=== PATIENT | male | born 1935 | race Caucasian/White ===

== ENCOUNTER → 2024-02-15 06:35 | Outpatient (REF) | payer MEDICARE, BC, SELFPAY ==
[2024-02-15 07:17] LABS: % Basophils 1.3 % (0-2); % Eosinophils 9.7 % (0-6); % Immature Granulocytes 0.3 % (0-0.5); % Lymphocytes 21.8 % (20.5-51.1); % Monocytes 14.1 % (1.7-9.3); % Neutrophils 52.8 % (42.2-75.2); Absolute Basophils 0.1 10^3/uL (0-0.2); Absolute Eosinophils 0.9 10^3/uL (0-0.7); Absolute Lymphocytes 2.1 10^3/uL (1.2-3.4); Absolute Monocytes 1.3 10^3/uL (0.1-0.6); Hematocrit 48.1 % (39.0-52.0); Hemoglobin 15.9 g/dL (13.0-18.0); Mean Corp Hgb Conc. 33.1 g/dL (33.0-37.0); Mean Corpuscular Hgb 31.4 pg (27.0-31.0); Mean Corpuscular Volume 94.9 fL (80.0-94.0); Mean Platelet Volume 10.7 fL (7.4-10.4); Nucleated Red Blood Cells % 0 % (-); Platelet Count 236 10^3/uL (130-400); Red Blood Cell Count 5.07 10^6/uL (4.70-6.10); Red Cell Dist. Width 14.2 % (11.5-14.5); White Blood Cell Count 9.4 10^3/uL (4.8-10.8)
[2024-02-15 07:46] LABS: Free T4 1.09 ng/dl (0.78-2.19)
[2024-02-15 07:48] LABS: ALT (SGPT) 26 U/L (0-50); AST (SGOT) 30 U/L (17-59); Albumin 4.2 g/dl (3.5-5.0); Alkaline Phosphatase 53 U/L (38-126); Blood Urea Nitrogen 39 mg/dl (9-20); Calcium 9.7 mg/dl (8.4-10.2); Carbon Dioxide 28 mmol/L (22-30); Chloride 106 mmol/L (98-107); Glucose 88 mg/dl (70-99); Iron 148 ug/dl (49-181); Potassium 4.7 mmol/L (3.5-5.1); Sodium 139 mmol/L (135-145); Total Bilirubin 0.7 mg/dl (0.2-1.3); Total Protein 7.2 g/dl (6.3-8.2); eGFR 38.53
[2024-02-15 07:58] LABS: Percent Saturation 56 % (20-50); Total Iron Binding Capacity 262 ug/dl (261-462)
[2024-02-15 08:03] LABS: Ferritin 93.3 ng/ml (17.9-464.0)
== END ==
LOC: REG 06:35
PROVIDERS: FAMILY PHYSICIAN Family Medicine
DX: L29.8 Other pruritus (principal); E03.9 Hypothyroidism, unspecified
CPT/HCPCS: 36415; 80053; 82728; 83540; 83550; 84439; 84443; 85025

== ENCOUNTER → 2024-03-11 10:47 | Outpatient (REF) | payer MEDICARE, BC, SELFPAY | LOC: RAD 10:47 | PROVIDERS: ATTENDING PHYSICIAN Podiatrist Primary Podiatric Medicine; FAMILY PHYSICIAN Family Medicine | DX: M79.672 Pain in left foot (principal); M25.572 Pain in left ankle and joints of left foot | CPT/HCPCS: 73610 ==

== ENCOUNTER 2024-03-24 16:34 | Inpatient (IN) | payer MEDICARE, BC, SELFPAY ==
[2024-03-24] VITALS (18 sets, daily range): BP systolic 91–146; BP diastolic 37–83; BMI 25.2
--- NOTE | 2024-03-24 13:35 | ED.GENMED ---
History of Present Illness
General
Chief Complaint: Heart Rate Problem
Source: patient, records and ambulance crew
Time Seen by Provider: 03/24/24 13:31
Travel History
Have you had any contact with someone who has COVID-19?: No
Do you have any symptoms of coronavirus? Fever > 100 degrees, chills, cough, shortness of breath, sore throat, loss of taste or smell, muscle aches, or headache?: No
History of Present Illness
History of Present Illness:
This patient is an 88-year-old male was brought to the emergency department by medics after they were called because patient was unresponsive. Upon medic arrival, patient was sitting in a chair unresponsive with a pulse of 20. External pacer pads
were applied, patient was paced and then given 1 mg of atropine. He has regained consciousness, heart rate is 40 and blood pressure is now measurable. Patient is now awake but somewhat confused which according to medics is baseline for him. He
denies chest pain, shortness of breath, abdominal pain, dizziness, or other complaints. His only memory of today is having a bowel movement and then waking up in this room.
Past History
Past History
ED Past Medical History: COPD, GERD, Seizures, Hypothyroidism and Other (Hypothyroidism, solitary kidney, lupus, rheumatoid arthritis, IBS)
ED Past Surgical History: Appendectomy
Social History
Tobacco: Former smoker
Alcohol: None
Drug: None
Personal:
Living: with family
Employment: Retired
Phy Exam
Physical Exam
Physical Exam:
GENERAL: Alert , in no apparent distress
EYE: pupils equal and reactive
NECK: Supple, no significant adenopathy.
ENT: o/p clr, mmm.
CARDIAC: Regular rate and rhythm .
LUNGS: Clear breath sounds bilaterally, no acute respiratory distress, no wheezes/rales/rhonchi
ABDOMEN: Soft, without focal tenderness, no r/g
NEUROLOGICAL: Alert and oriented to person and time but not place, no focal neuro deficits
SKIN: Warm and dry, skin intact.
MUSCULOSKELETAL: No edema, well perfused.
PSYCH: Normal and appropriate interaction.
Course
Orders/Labs/Results
Orders:
Orders
03/24/24 13:14
Electrocardiogram (*1) Urgent
Reason for Study: Bradycardia / Tachycardia
03/24/24 13:15
EKG- Treatment ONCE
03/24/24 13:19
Atropine Sulfate [Atropine 0.1 mg/ml Syringe] 1 mg .ROUTE .STK-MED ONE
03/24/24 13:35
CMP [Comprehensive Metabolic Panel] Urgent
Complete Blood Count/With Diff Urgent
Cortisol, Random Urgent
Comment: ADD-ON
Troponin I Urgent
03/24/24 13:38
Urinalysis Reflex To Culture Urgent
Date Specimen was Collected: 03/25/24
Time Specimen was Collected: 04:03
03/24/24 13:58
Lactic Acid Q4H
Comment: CANCEL 2nd LACTIC ACID IF 1st LACTIC ACID IS LESS THAN 2
TSH Stat
Blood Culture Q30M
JADIEL Source: Blood/Venous
Specimen Description:
Blood Culture Q30M
JADIEL Source: Blood/Venous
Specimen Description:
03/24/24 14:10
Atropine Sulfate [Atropine 0.1 mg/ml Syringe] 1 mg IV NOW STA
03/24/24 14:16
CT Head W/o Iv Contrast Urgent
Comment:
Reason For Exam: confusion
03/24/24 14:29
Atropine Sulfate [Atropine 0.1 mg/ml Syringe] 1 mg .ROUTE .STK-MED ONE
03/24/24 Dinner
Regular
At Your Request: Full Participation
Does patient need a safe tray?: No
03/24/24 15:08
Hydrocortisone Sod Succinate [Solu-Cortef] 100 mg IV NOW STA
Levothyroxine [Synthroid] 100 mcg PO NOW STA
03/24/24 15:43
Add On- LAB Routine
Tests Added?: cortisol
Admit/Transfer Patient As Directed
Co-Sign Provider:
Level of Care: Inpatient admission
Assign to:: IVU
Physician / Group: [facility]
Diagnosis: Symptomatic bradycardia, hypothermia
Reason for Hospitalization: Cardiology consult
Expected length of stay greater than two midnights?: Yes
ELOS- Estimated Length of Stay in days: 3
I certify the patient meets the requirements for IP care: Yes
03/24/24 15:46
Code Status As Directed
Resuscitation Status: Do not resuscitate
Reached after discussion with pt or family/Healthcare POA: Yes
DNR Bracelet Application ONCE
03/24/24 15:53
Sodium Zirconium Cyclosilicate [Lokelma] 10 gram PO NOW STA
03/24/24 17:23
0.45% Sodium Chloride 1000 ml [0.45%NaCl] 1,000 ml IV 65 mls/hr
Acetaminophen [Tylenol] 650 mg PO Q6HPRN PRN
Albuterol [ProAIR HFA INHALER] 2 puff INH R Q4HPRN PRN
03/24/24 17:23
CARDIOLOGY CONSULT Routine
Consulting Provider: Kings Gilbert
Was physician already notified: Yes
Activity As Directed
Activity Level: With Assistance
DX Deep Vein Thrombosis Video Routine
03/24/24 20:00
Fluticasone/Salmeterol 115/21 [Advair Hfa 115/21 Mcg Inhaler] 2 puff INH R BID
Heparin 5,000 units SC Q12
Levetiracetam [Keppra] 750 mg PO Q12
03/24/24 22:00
Artificial Tears (Pf) [Refresh Eye Drops (Pf)] 1 drops BOTH EYES TID
HydrOXYZINE [Atarax] 25 mg PO HS
03/25/24 02:24
Basic Metabolic Panel IN AM
03/25/24 06:00
Levothyroxine [Synthroid] 112 mcg PO DAILY @ 0600
03/25/24 08:00
Allopurinol [Zyloprim] 100 mg PO DAILY
Brimonidine Tartrate/Timolol [Combigan Eye Drops] 1 drop LEFT EYE DAILY
03/27/24 11:00
DC Protocol for Telemetry ONCE
Abnormal Lab Results
03/24/24 03/24/24
13:35 13:58
RBC 4.52 L 10^6/uL
(4.70-6.10)
MCV 96.2 H fL
(80.0-94.0)
MCHC 32.2 L g/dL
(33.0-37.0)
MPV 10.8 H fL
(7.4-10.4)
Abs Immat Gran (auto) 0.1 H 10^3/uL
(0-0.05)
Absolute Monos (auto) 1.0 H 10^3/uL
(0.1-0.6)
Monocytes % 9.7 H %
(1.7-9.3)
Potassium 5.3 H mmol/L
(3.5-5.1)
Chloride 111 H mmol/L
(98-107)
Carbon Dioxide 21 L mmol/L
(22-30)
BUN 45 H mg/dl
(9-20)
Creatinine 1.9 H mg/dL
(0.7-1.3)
Calcium 8.2 L mg/dl
(8.4-10.2)
Alkaline Phosphatase 23 L U/L
(38-126)
Total Protein 5.9 L g/dl
(6.3-8.2)
Albumin 3.3 L g/dl
(3.5-5.0)
TSH 12.20 H uIU/ml
(0.47-4.68)
03/24/24 13:35
03/24/24 13:35
Vital Signs
Initial and Last Documented VS:
Initial Vital Signs
Pulse Resp BP
41 18 124/67
03/24/24 13:15 03/24/24 13:15 03/24/24 13:15
Last Documented Vital Signs
Temp Pulse Resp BP Pulse Ox
97.8 F 72 16 155/91 96
03/26/24 07:52 03/26/24 08:34 03/26/24 08:34 03/26/24 07:54 03/26/24 08:34
*Critical Care Note
Total Time (30-74mins, 75-104mins- exclusive of procedures): 35
Update Note
Update Note:
Patient presents to the Emergency Department with ___unresponsiveness
Number and Complexity of Problems Addressed at the Encounter
� Chronic conditions affecting care:
� Acute Exacerbation and/or Progression of Chronic Illness:
� Differential Diagnosis includes: Vasovagal event, sick sinus syndrome, medication event, etc.
Amount and/or Complexity of Data to be Reviewed and Analyzed
� I performed an independent evaluation of and my interpretation is:
EKG: Junctional versus sinus bradycardia, narrow complex, right bundle branch block with left anterior fascicular block, no acute ischemia noted
CT:
Xrays:
Laboratory Studies: No hyponatremia noted, renal dysfunction baseline for patient, TSH markedly elevated at 12.2 in comparison to February 14 when it was 5.2
Other:
� Review of other/old records reveals: Discharge summary from February 2019 reviewed at that time patient had a hip fracture was also noted to have a first-degree heart block and was seen by cardiology, EF approximately 50% at that
time.
� Clinical information was obtained by an independent historian:
� Prescriptions/Medications Considered but not given:
� Further testing considered but not performed:
Risk of Complications and/or Morbidity or Mortality of Patient Management
� Social determinants of health affecting care:
� Discussion with other providers (PCP, Hospitalists, Consultants, etc):
� Escalation of care including admission/observation vs risk of discharge considered: 2:16 PM family now at bedside they describe patient complaining of dizziness, had a bowel movement, and then thereafter was calling out to
family. They found him unresponsive and called medics. They all had hamburgers yesterday and are not feeling well with GI symptoms. Patient recalls having a large bowel movement that 'came on fast'. Patient with recurrent bradycardia here
systolic blood pressure 99, 1 mg of atropine given. He is noted to be confused, which is not to the level of what would be typical for patient. Head CT ordered. Workup continues.
Of note, TSH elevated and patient is hypothermic and bradycardic. However, he does not have hyponatremia, hypoglycemia, hypotension, or lethargy that would suggest myxedema coma. Given synthroid and hydrocortisone here. Patient may need a pacer
as his bradycardia does not appear to be mediated by a vagal event alone. Head CT pending, [place] text to hospitalist for admission.
ED Attending Note
-
Portions of this chart may have been created with voice recognition software.� Occasional wrong word or��sound alike� substitutions may have occurred due to the inherent limitations of voice recognition software.
Discharge Plan
Departure
Patient Disposition: Admit
Date of Disposition: 03/24/24
Time of Disposition: 15:13
Admit to: ICU
Presentation/result/management discussed w/ accepting MD/DO: Hospitalist
Condition: Critical
Discharge Problem:
Bradycardia
Interventions
Interventions:
*Risk Screen - Suicide Last Done: 03/24/24 13:15
*General Assessment Last Done: 03/24/24 13:33
*Neglect/Abuse Screening Last Done: 03/24/24 13:33
ED- Fall Risk Assessment Last Done: 03/24/24 13:40
*ED COVID-19 Vaccine History Last Done: 03/24/24 13:33
*Nursing Disposition Last Done: 03/24/24 17:17
ED- Cardiac Assessment Last Done: 03/24/24 13:39
ED- Pulmonary Assessment Last Done: 03/24/24 13:39
Discharge Date and Time
Discharge Date/Time: 03/24/24 17:19
[2024-03-24 13:43] LABS: % Basophils 1.3 % (0-2); % Eosinophils 4.6 % (0-6); % Immature Granulocytes 0.5 % (0-0.5); % Lymphocytes 28.9 % (20.5-51.1); % Monocytes 9.7 % (1.7-9.3); Absolute Basophils 0.1 10^3/uL (0-0.2); Absolute Eosinophils 0.5 10^3/uL (0-0.7); Absolute Immature Granulocytes 0.1 10^3/uL (0-0.05); Absolute Neutrophils 5.7 10^3/uL (1.4-6.5); Hematocrit 43.5 % (39.0-52.0); Mean Corp Hgb Conc. 32.2 g/dL (33.0-37.0); Mean Corpuscular Volume 96.2 fL (80.0-94.0); Mean Platelet Volume 10.8 fL (7.4-10.4); Nucleated Red Blood Cells % 0 % (-); Platelet Count 183 10^3/uL (130-400); Red Blood Cell Count 4.52 10^6/uL (4.70-6.10); Red Cell Dist. Width 14.3 % (11.5-14.5); White Blood Cell Count 10.3 10^3/uL (4.8-10.8)
[2024-03-24 14:07] LABS: Troponin I 0.013 ng/ml
[2024-03-24 14:10] LABS: ALT (SGPT) 21 U/L (0-50); AST (SGOT) 30 U/L (17-59); Albumin 3.3 g/dl (3.5-5.0); Alkaline Phosphatase 23 U/L (38-126); Blood Urea Nitrogen 45 mg/dl (9-20); Calcium 8.2 mg/dl (8.4-10.2); Carbon Dioxide 21 mmol/L (22-30); Chloride 111 mmol/L (98-107); Estimated Creatinine Clearance 31 ml/min; Glucose 95 mg/dl (70-99); Potassium 5.3 mmol/L (3.5-5.1); Sodium 139 mmol/L (135-145); Total Bilirubin 0.6 mg/dl (0.2-1.3); Total Protein 5.9 g/dl (6.3-8.2); eGFR 33.72
[2024-03-24] MEDS: ATROPINE 0.1 MG/ML SYRINGE 1 MG IV (14:10)
[2024-03-24 14:21] LABS: Lactic Acid 1.7 mmol/L (0.7-2.0)
[2024-03-24] MEDS: SOLU-CORTEF 100 MG IV (15:17)
[2024-03-24] MEDS: SYNTHROID 100 MCG PO (15:17)
--- NOTE | 2024-03-24 15:51 | HPS.HSE ---
Family Physician
-
Family Physician: Zachary Stauffer
Chief Complaint
-
Unresponsive episode
History of Present Illness
88-year-old male found unresponsive in the chair by his family this morning. Paramedics arrived and noted heart rate of 20 and became arousable when they tried to inject him with atropine. Transcutaneous pacer applied and he was brought into the
emergency room. Noted to be hypothermic as well.
Patient and family deny history of bradycardia. Denies any medication changes. Denies any recent illnesses.
States he has been compliant with his daily Synthroid dose.
Medical History
Past Medical History
Past Medical History: Reports Other
Additional Past Medical History:
Hypothyroidism
Epilepsy
Solitary kidney -CKD 3B
Rheumatoid arthritis
SLE
IBS
COPD
Past Surgical History: Reports Appendectomy
Social History
Tobacco: Former Smoker
Alcohol: Daily
Drug: None
Personal:
Living: With Family
Family History
Family History: Not pertinent
Allergies / Home Medications
Allergies reflects when Allergies were last updated in [facility].
Home Medications with original date entered in [facility]
Allergy/Medication List:
Allergies
Allergy/AdvReac Type Severity Reaction Status Date / Time
No Known Allergies Allergy Verified 03/24/24 13:14
Home Medications
allopurinol 100 mg tablet 100 mg PO DAILY 30 days 03/11/19
cyanocobalamin (vitamin B-12) 1,000 mcg/mL injection solution 1,000 mcg IM MONTHLY 03/11/19
Serum Eye Drop 1 drp RIGHT EYE TID 03/24/24
Steroid Cream 1 applic topical BID 03/24/24
brimonidine 0.2 %-timolol 0.5 % eye drops (Combigan) 1 drp LEFT EYE DAILY 03/24/24
celecoxib 200 mg capsule 200 mg PO BID 03/24/24
fluticasone propionate 115 mcg-salmeterol 21 mcg/actuation HFA inhaler (Advair HFA) 2 puff inhalation R BID 03/24/24
hydroxyzine HCl 25 mg tablet 25 mg PO HS 03/24/24
levetiracetam 750 mg tablet 750 mg PO Q12 03/24/24
levothyroxine 100 mcg tablet 100 mcg PO DAILY 03/24/24
polyvinyl alcohol 1.4 % eye drops (Artificial Tears (polyvinyl alcohol)) 1 drp BOTH EYES TID 03/24/24
Review of Systems
-
History Source: Patient
A 12 point ROS was completed and negative except as noted: Yes
Physical Exam
Vital Signs
Vital Signs
Temp Pulse Resp BP Pulse Ox
96.8 F L 47 20 105/57 95
03/24/24 15:00 03/24/24 14:45 03/24/24 14:15 03/24/24 14:45 03/24/24 14:31
Physical Exam
General: Well Developed, Well Nourished, No Apparent Distress and Comfortable
HEENT: NormoCephalic and Anicteric; No Moist mucous membranes
Respiratory: Clear
Cardiac: S1/S2 and Regular Rhythm
GI: Soft, Non Tender and Non Distended
Genito-urinary: Deferred by me
Musculoskeletal: No Clubbing, No Cyanosis and No Edema
Skin: Warm and Dry
Neuro: AO x 3
Hematologic/Lymphatic: No Lymphadenopathy
Psych: Calm
Laboratory Results
-
03/24/24 13:35
03/24/24 13:35
Laboratory Results
Lactic Acid 1.7 mmol/L (0.7-2.0) 03/24/24 13:58
Total Bilirubin 0.6 mg/dl (0.2-1.3) 03/24/24 13:35
AST 30 U/L (17-59) 03/24/24 13:35
ALT 21 U/L (0-50) 03/24/24 13:35
Alkaline Phosphatase 23 U/L (38-126) L 03/24/24 13:35
Troponin I 0.013 ng/ml 03/24/24 13:35
Impression/Plan
-
Unresponsive episode -presumably due to severe bradycardia, hypotension. Component of volume depletion contributing given prerenal azotemia. Administer IV fluids, admit to telemetry. Bear hugger for hypothermia.
CT head pending.
Symptomatic bradycardia -suspect underlying conduction disease due to aging. Admit to telemetry. Cardiology consult. Consideration for pacemaker placement.
Hypothermia -doubt due to infection. Possibly due to hypothyroidism, rule out adrenal insufficiency. Consideration for hypothalamic failure due to aging.
DANIELLE on CKD 3B -due to volume depletion likely. IV fluids. Monitor urine output. He has a congenital solitary kidney. Stop NSAIDs.
Hyperkalemia -5.3. Give a dose of Lokelma. Etiology likely DANIELLE.
COPD without exacerbation -stable.
Hypothyroidism - TSH 12. Patient states he is compliant with levothyroxine at home. Will increase maintenance dose to 112 mcg daily, TSH in 4 weeks.
Epilepsy -history of partial seizures. Continue Keppra. Family states he has been seizure-free for quite some time now.
Rheumatoid arthritis
SLE
IBS
DNR -confirmed with patient and family.
[2024-03-24] MEDS: LOKELMA 10 GRAM PO (16:17)
[2024-03-24 16:55] LABS: Cortisol, Random 20.8 ug/dl
--- NOTE | 2024-03-24 17:55 | PTCARENOTE ---
received pt from ED. Pulled over from stretcher. pt is afib on the monitor, hr 36-45, vss. pt offers no complaints at this time. pt alert and oriented but can be forgetful at times per family. bed alarm in place. lungs clear and pulses palpable. pt
has small skin tear 3x2in on right forearm. pacer pads placed on pt. pt educated on plan of care for the evening and pt verbalized understanding. DNR bracelet placed. call hsu within reach.
[2024-03-24] MEDS: ADVAIR HFA 115/21 MCG INHALER 2 PUFF INH (19:47)
[2024-03-24] MEDS: 0.45%NACL 1000 IV (20:03)
[2024-03-24] MEDS: HEPARIN 5000 UNITS SC (20:06)
[2024-03-24] MEDS: KEPPRA 750 MG PO (20:07)
[2024-03-24] MEDS: ATARAX 25 MG PO (20:09)
[2024-03-25 02:39] VITALS: BP 157/83
[2024-03-25 03:00] LABS: Blood Urea Nitrogen 55 mg/dl (9-20); Calcium 9.2 mg/dl (8.4-10.2); Carbon Dioxide 21 mmol/L (22-30); Chloride 108 mmol/L (98-107); Estimated Creatinine Clearance 27 ml/min; Glucose 117 mg/dl (70-99); Potassium 5.1 mmol/L (3.5-5.1); Sodium 135 mmol/L (135-145); eGFR 28.28
[2024-03-25] MEDS: REFRESH EYE DROPS (PF) BOTH EYES ×2 (03:27→22:17)
[2024-03-25 05:37] LABS: Urine Albumin Trace (Neg - Trace); Urine Bilirubin Negative (Negative); Urine Character Clear (Clear); Urine Color Yellow; Urine Glucose Negative (Negative); Urine Ketone Negative (Negative); Urine Leukocyte Negative (Negative); Urine Nitrite Negative (Negative); Urine Occult Blood Negative (Negative); Urine Specific Gravity 1.015 (<1.030); Urine Urobilinogen Negative (Neg - 1+)
[2024-03-25] MEDS: SYNTHROID 112 MCG PO (05:40)
[2024-03-25] MEDS: 0.45%NACL 1000 IV (05:41)
--- NOTE | 2024-03-25 05:52 | PTCARENOTE ---
straight cath- 1100 output.
--- NOTE | 2024-03-25 05:53 | PTCARENOTE ---
Pt mildly forgetful overnight- AAOx2- not always to place- would reorient quickly but often though he was at home. x2 assist to the BSC shuffling unsteady gait
[2024-03-25 06:00] VITALS: BMI 24.3
[2024-03-25 07:19] VITALS: BP 145/73
[2024-03-25 07:22] VITALS: BP 145/73
--- NOTE | 2024-03-25 07:48 | CON.CAR ---
Addendum entered and electronically signed by Forest Farrell MD 03/25/24 09:12:
80-year-old man with syncope in his chair on March 24, 2024. Initial heart rate was 20 and improved with atropine. Also found to be hypothermic. He felt poorly before, with some diarrhea, thinks this is very different from his seizure disorder, is
very diligent at the gym, no longer drives, some cognitive impairment
Allergies: None
Outpatient medications: Allopurinol 100 mg a day, Combigan, celecoxib 200 mg twice daily, vitamin B12, Advair, hydroxyzine, levetiracetam 75 mg every 12 hours
Levothyroxine 100 mcg daily, artificial tears
PMH: Seizure disorder, hypothyroidism, CKD 3B with solitary kidney, rheumatoid arthritis, lupus, COPD, cognitive impairment
PSH: Appendectomy
SH: Ex-smoker, has alcohol daily, , does not drive, lives with family, retired
FH: Noncontributory
ROS: Negative except as above
145/73, pulse 65, resprate 18, sats 100%
Appears strong, pleasant, mildly forgetful, son and [id number] at bedside head neck exam unremarkable lungs are clear bradycardic rhythm without obvious murmurs abdomen benign extremities without clubbing cyanosis or edema, neuro nonfocal, has
changes of rheumatoid arthritis in hands
Hemoglobin 14, white count 10, potassium 5.1, had been 5.3 on admission, bicarb 21, BUN and creatinine 55 and 2.2, lactate 1.7, troponin 0.013, TSH 12.2, cortisol 20.8, anion gap 6
ECG junctional escape rhythm with occasional sinus rhythm, right bundle branch block, left anterior fascicular block
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
Impression:
Presented after unresponsive episode
Symptomatic bradycardia
Wenckebach
Hypothyroidism
h/o orthostatic hypotension
COPD
B12 Deficiency
Solitary kidney, CKD 3b
Epilepsy
SLE
IBS
h/o DVT 2005
Cognitive impairment
Echo 02/28/2019: EF 50%, MAC present, aortic valve sclerosis without stenosis
Plan:
He presents with evidence of advanced conduction disease, first-degree AV block, right bundle branch block, left anterior fascicular block with periods of second-degree AV block and also periods of bradycardia with junctional escape.
Complicating factors include history of a seizure disorder although current episode was not typical for him. He is also mildly hypothyroid, was hypothermic, is on a beta-blocking eyedrop, and he had abdominal distress prior to his event probably
implying high vagal tone at the time of his loss of consciousness.
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
Explained at length to patient and family.
Await echocardiogram, will check free T3 and free free T4.
Will plan on proceeding with pacemaker implantation in a.m. absent discovery of ongoing infection, etc.
Original Note:
Consultation
Consultation Request
Date/Time Consultation Requested: 03/24/2024
Date/Time Consultation Performed: 03/24/2024
Requesting Provider: Dr. Gregory
Performing Provider: Dr. PAULINE Farrell
Reason for Consultation: Symptomatic Bradycardia
Medical History
-
History of Present Illness:
HPI: Manohar is an 88 year old male with PMH of hypothyroidism, COPD, B12 deficiency, CKD, epilepsy, SLE, IBS, and prior DVT. He presented to [facility] for evaluation after unresponsive episode at home. He reports he has baseline unsteadiness related to
his B12 deficiency and ambulates with a cane, however over the past few days has felt more unsteady on his feet and has had lower energy. Yesterday he then had reported episode of unresponsiveness where he was found by his son, who he lives with, on
his chair and was unarousable. EMS was called and patient was noted to have a heart rate of 20. He was given atropine and woke back up. He then was brought to the ER where he was found to be hypothermic with temperature of 93.9F. Labwork revealed
TSH of 12.2, despite reported compliance with his OP levothyroxine. Initial EKG shows what appears to be junctional bradycardia. On review of telemetry, he appears to have intermittent Wenckebach. HRs improving this AM as his temperature has
returned to normal. He reports he is overall asymptomatic this AM.
PMH:
Hypothyroidism
h/o orthostatic hypotension
COPD
B12 Deficiency
Solitary kidney, CKD 3b
Epilepsy
SLE
IBS
h/o DVT 2005
Past Medical History
Past Medical History: Other (In HPI)
Past Surgical History: Appendectomy and Other (Inguinal hernia repair, L BOOKER 2019)
Social History
Tobacco: Former Smoker
Alcohol: Occasional
Drug: None
Personal:
Living: With Family
Employment: Retired
Family History
Family History: Reviewed & Not Pertinent
Allergies / Home Medications
Allergy/AdvReac Type Severity Reaction Status Date / Time
No Known Allergies Allergy Verified 03/24/24 13:14
�Medication �Instructions �Recorded �Confirmed �Type
allopurinol 100 mg tablet 100 mg PO DAILY 30 days 03/11/19 03/24/24 Rx
cyanocobalamin (vitamin B-12) 1,000 mcg IM MONTHLY 03/11/19 03/24/24 Rx
1,000 mcg/mL injection solution
Serum Eye Drop 1 drp RIGHT EYE TID Eye Condition 03/24/24 03/24/24 History
Steroid Cream 1 applic topical BID Skin Issues 03/24/24 03/24/24 History
brimonidine 0.2 %-timolol 0.5 % 1 drp LEFT EYE DAILY Eye Condition 03/24/24 03/24/24 History
eye drops (Combigan)
celecoxib 200 mg capsule 200 mg PO BID Pain 03/24/24 03/24/24 History
fluticasone propionate 115 2 puff inhalation R BID 03/24/24 03/24/24 History
mcg-salmeterol 21 mcg/actuation Lung/Breathing Issues
HFA inhaler (Advair HFA)
hydroxyzine HCl 25 mg tablet 25 mg PO HS Sleep 03/24/24 03/24/24 History
levetiracetam 750 mg tablet 750 mg PO Q12 Seizures 03/24/24 03/24/24 History
levothyroxine 100 mcg tablet 100 mcg PO DAILY Thyroid 03/24/24 03/24/24 History
polyvinyl alcohol 1.4 % eye drops 1 drp BOTH EYES TID Eye Condition 03/24/24 03/24/24 History
(Artificial Tears (polyvinyl
alcohol))
Review of Systems
-
History Source: Patient
All other systems: Negative unless noted
Physical Exam
Vital Signs
Temp Pulse Resp BP Pulse Ox
97.3 F 65 18 145/73 100
03/25/24 07:19 03/25/24 07:19 03/25/24 07:19 03/25/24 07:19 03/25/24 07:19
Lab Results
03/24/24 13:35
03/25/24 02:24
Troponin I 0.013 ng/ml 03/24/24 13:35
Physical Exam
General: Well Developed, Well Nourished and No Apparent Distress
HEENT: Normocephalic, Anicteric and Moist Mucous Membranes
Respiratory: Clear and Non Labored Respirations
Cardiac: S1/S2 and Regular Rhythm
Musculoskeletal: No Clubbing, No Cyanosis and No Edema
Skin: Warm and Dry
Neuro: AO x 3 and Nonfocal/Grossly Intact
Psych: Calm
Impression / Plan
-
PCP: Dr. Stauffer
Sports Trainer: Previously seen by Dr. Farrell in 2019
Impression:
Presented after unresponsive episode
Symptomatic bradycardia
Wenckebach
Hypothyroidism
h/o orthostatic hypotension
COPD
B12 Deficiency
Solitary kidney, CKD 3b
Epilepsy
SLE
IBS
h/o DVT 2005
Echo 02/28/2019: EF 50%, MAC present, aortic valve sclerosis without stenosis
Plan:
-Presented after unresponsive episode at home. Found w/ HR in 20s, given atropine and improved.
-Initial EKG what appears to be junctional bradycardia.
-Hypothermic on arrival to ER with temp 93.9F, temp improved overnight w/ bear hugger.
-TSH 12.2, continue levothyroxine. Dose increased this admission.
-HR improved on review of telemetry overnight, however still appears to have intermittent Wenckebach.
-Not on any AV ramiro blockers. Continue to avoid.
-Discussed PPM with patient. Will continue to follow for now, however given episode of symptomatic bradycardia, likely will need PPM this admission.
-Check echo. Last echo in 2018 with EF 50% and no significant valvular disease.
-K and mag stable.
-Head CT without evidence of acute stroke.
HPI: Manohar is an 88 year old male with PMH of hypothyroidism, COPD, B12 deficiency, CKD, epilepsy, SLE, IBS, and prior DVT. He presented to [facility] for evaluation after unresponsive episode at home. He reports he has baseline unsteadiness related to
his B12 deficiency and ambulates with a cane, however over the past few days has felt more unsteady on his feet and has had lower energy. Yesterday he then had reported episode of unresponsiveness where he was found by his son, who he lives with, on
his chair and was unarousable. EMS was called and patient was noted to have a heart rate of 20. He was given atropine and woke back up. He then was brought to the ER where he was found to be hypothermic with temperature of 93.9F. Labwork revealed
TSH of 12.2, despite reported compliance with his OP levothyroxine. Initial EKG shows what appears to be junctional bradycardia. On review of telemetry, he appears to have intermittent Wenckebach. HRs improving this AM as his temperature has
returned to normal. He reports he is overall asymptomatic this AM.
Data Reviewed
-
EKG: Tracing Personally Visualized and interpreted
CT Scan: Report Reviewed by me
Labs: Labs Reviewed by me
Old Records: Reviewed
[2024-03-25] MEDS: ADVAIR HFA 115/21 MCG INHALER 2 PUFF INH ×2 (08:29→19:39)
[2024-03-25] MEDS: KEPPRA 750 MG PO ×2 (08:29→19:43)
[2024-03-25] MEDS: COMBIGAN EYE DROPS 1 DROP LEFT EYE (08:31)
[2024-03-25] MEDS: HEPARIN 5000 UNITS SC ×2 (08:32→19:44)
[2024-03-25] MEDS: REFRESH EYE DROPS (PF) 1 DROPS BOTH EYES ×2 (08:35→19:43)
--- NOTE | 2024-03-25 08:47 | PTCARENOTE ---
Dr Farrell to see patient for cardiology. Pt is being kept NPO for now to see if he will need a pacer. Holding allopurinol until verified with hospitalist due to elevated creat.
[2024-03-25 10:24] LABS: Free T3 2.78 pg/ml (2.77-5.27); Free T4 1.13 ng/dl (0.78-2.19)
--- NOTE | 2024-03-25 10:47 | PTCARENOTE ---
Discussed 0530 am urinary retention with Dr White, Dr White states to place urinary catheter due to retention and renal failure. He states to place it now.
--- NOTE | 2024-03-25 11:30 | W.PN.HOSP.TC ---
Today's Communication/Plan
-
Cardiac monitoring.
For PPM on 03/26.
Continue Levothyroid.
IV fluids.
Rivera catheter secondary to acute retention.
Assessment / Plan
Assessment / Plan
Impression:
Presentation with unresponsiveness episode.
Symptomatic bradycardia/bifascicular block
Acute urine retention.
Acute kidney injury.
Hypothermia on admission
Conditions prior to admission:
Hypothyroidism on replacement
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
History of orthostatic hypotension
Epilepsy
SLE
IBS.
History of DVT in 2005 currently not on anticoagulation
Cognitive impairment.
Plan:
Presentation after episode of unresponsiveness
Found to be bradycardic with heart rate of 20 and administered atropine in the field.
Initial EKG consistent with junctional bradycardia.
Volume status hypovolemic upon presentation.
TSH 12.2, although on levothyroxine daily with normal T3-T4.
Normal cortisol level.
CT scan of the head with no acute abnormalities
Heart rate remains stable with no recurrent bradycardia. Had not required temporary pacemaker so far
Echocardiogram 02/28/2019 with preserved biventricular function.
Plan is for echocardiogram.
Pacemaker placement tentatively on 03/26. Follow electrolytes
Acute kidney injury.
Volume status hypovolemic with elevated BUN.
Also with component of retention. Bladder scan 1100 mL requiring straight cath.
Will place Rivera catheter.
Follow renal function.
Continue IV fluids at the lower rate over the next 24 hours.
Hyperkalemia potassium 5.3 improved status post single dose of Lokelma.
Hypothermia on admission.
Does not appear to be toxic
No clinical concern for sepsis
Hypothyroidism on replacement, although with elevated TSH and normal free T4 and T3.
Normal cortisol level.
COPD.
Respiratory status stable with no evidence of exacerbation
Rheumatoid arthritis
SLE.
IBS.
CODE STATUS DNR.
Anticipated Discharge: > 48 hours
Subjective/Interval History
-
Date of Service: March 25, 2024
Objective Data
-
Labs:
Laboratory Results
03/25/24
02:24
Sodium 135
Potassium 5.1
Chloride 108 H
Carbon Dioxide 21 L
BUN 55 H
Creatinine 2.2 H
Glucose 117 H
Calcium 9.2
Vital Signs:
Vital Signs
Temp Pulse Resp BP Pulse Ox
97.3 F 63 16 145/73 98
03/25/24 07:19 03/25/24 08:33 03/25/24 08:33 03/25/24 07:19 03/25/24 08:33
I&O
03/24/24 03/25/24 03/26/24
06:59 06:59 06:59
Output Total 1200 / 1200
Balance -1200 / -1200
Physical Exam
-
General: Well Developed and No Apparent Distress
HEENT: Normocephalic, Atraumatic and Moist Mucous Membranes
Respiratory: Clear to Auscultation
Cardiac: Regular Rhythm and S1/S2; Negative Murmur, Rub or Gallop
GI: Soft, Nontender, Nondistended and Normal Bowel Sounds; Negative Organomegaly
Rectal: Deferred by Provider
Musculoskeletal: No Clubbing, No Cyanosis and No Edema
Skin: Negative Rash
Neuro: Nonfocal/Grossly Intact
[2024-03-25 11:40] VITALS: BP 117/65
--- NOTE | 2024-03-25 11:40 | PTCARENOTE ---
pt having heart rate down to 40's with stable bp. [place] text sent to NIRAV Cruz:
can you order an ekg for Mr jose in [id number], he is having heart blocks and it is difficult to see rhythm on monitor, heart rate down to 40's now but bp great.
Will obtain ekg
--- NOTE | 2024-03-25 12:12 | PTCARENOTE ---
EKG shown to NIRAV Cruz, pt will get ppm tomorrow.
--- NOTE | 2024-03-25 12:12 | CM ---
Chart reviewed. Patient is independent of ADLS, lives with his son in a 2 S[address], ambulates with a SPC and rolling walker, 0 TRINID[place]. Patient appears unsteady on his feet. PT/OT evaluation requested. Patient is waiting for PPM. CM to follow
[2024-03-25] MEDS: NON-FORMULARY ITEM 1 DROP RIGHT EYE (18:20)
[2024-03-25 19:01] VITALS: BP 113/66
[2024-03-25 22:21] VITALS: BP 139/79
[2024-03-25] MEDS: NON-FORMULARY ITEM RIGHT EYE (22:22)
[2024-03-25] MEDS: ATARAX 25 MG PO (22:22)
[2024-03-26] VITALS (16 sets, daily range): BP systolic 96–190; BP diastolic 64–108; BMI 23.7
--- NOTE | 2024-03-26 03:00 | PTCARENOTE ---
Patient setting bed alarm off, attempting to get OOB. Patient stating 'I'm in the kids bedroom, I want to get in my bedroom'. Patient had another episode of confusion and states 'I'm looking for my class ring, its over there on the counter'.This RN
put lights on, and no ring in site. This RN redirected patient to place and situation. Patient having ? episodes of hallucinations. Patient became agitated w/ nursing staff. Attempted reality orientation. Bed alarm remains active. Call hsu in
reach. Reminded patient to remain NPO for procedure today. Tele monitor shows thania w/ 1st AV block, BBBC, and occasionally junctional. HR in the 40-50's at rest.
[2024-03-26 04:56] LABS: Blood Urea Nitrogen 46 mg/dl (9-20); Calcium 9.2 mg/dl (8.4-10.2); Carbon Dioxide 22 mmol/L (22-30); Chloride 110 mmol/L (98-107); Estimated Creatinine Clearance 37 ml/min; Glucose 84 mg/dl (70-99); Potassium 4.6 mmol/L (3.5-5.1); Sodium 141 mmol/L (135-145); eGFR 41.44
[2024-03-26] MEDS: SYNTHROID 112 MCG PO (05:25)
[2024-03-26] MEDS: ADVAIR HFA 115/21 MCG INHALER 2 PUFF INH ×2 (08:29→21:01)
--- NOTE | 2024-03-26 08:36 | PTCARENOTE ---
Assumed care of pt from prev nsg shift. Pt AAOX1, oriented to self only. Pt confused to time & place. Pt appears to be hallucinating & seeing his & other family members. Pt confused to place telling this RN he's 'camping right now'. Pt
is aware he is having a PPM placed today. Pt w/no cp or SOB. VS stable w/HR currently in the 60's. BP elevated at 155/91. Pt's rythm per telemetry monitoring alternates between SB, SR, & junctional. Pt w/call hsu within reach & bed alarm in place.
Pt does require frequent reorientation & reminders to stay in bed. Plan of care ongoing.
[2024-03-26] MEDS: REFRESH EYE DROPS (PF) 1 DROPS BOTH EYES ×2 (09:22→18:20)
[2024-03-26] MEDS: KEPPRA 750 MG PO ×2 (09:23→20:00)
[2024-03-26] MEDS: HEPARIN 5000 UNITS SC (09:23)
[2024-03-26] MEDS: COMBIGAN EYE DROPS 1 DROP LEFT EYE (09:26)
--- NOTE | 2024-03-26 10:53 | CM ---
Chart reviewed. Patient is independent of ADLS, lives with his son in a 2 S[address], 0 TRIN[place], ambulates with a SPC. PT/OT evaluation ordered. Plan is for the patient to return home with VN vs SNF. CM to follow
[2024-03-26] MEDS: NON-FORMULARY ITEM RIGHT EYE ×2 (12:15→22:24)
--- NOTE | 2024-03-26 12:17 | W.PN.UPDATE ---
Update Note
Progress Note Update
Met with patient and son at the bedside and discussed options for pacemaker placement. Discussed left-sided implant with activity restrictions including 1 of thousand risk of and a 1% risk of pneumothorax tamponade infection or bleeding. The
patient and son agree and I took time to answer all questions. Will proceed to pacemaker placement later today.
--- NOTE | 2024-03-26 13:42 | W.PN.HOSP.TC ---
Today's Communication/Plan
-
For pacemaker placement
Continue.
Consider to initiate Flomax.
Physical therapy assessment after pacemaker placement.
Assessment / Plan
Assessment / Plan
Impression:
Presentation with unresponsiveness episode.
Symptomatic bradycardia/bifascicular block
Acute urine retention.
Acute kidney injury.
Hypothermia on admission
Conditions prior to admission:
Hypothyroidism on replacement
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
History of orthostatic hypotension
Epilepsy
SLE
IBS.
History of DVT in 2005 currently not on anticoagulation
Cognitive impairment.
Plan:
Presentation after episode of unresponsiveness
Found to be bradycardic with heart rate of 20 and administered atropine in the field.
Initial EKG consistent with junctional bradycardia.
Volume status hypovolemic upon presentation.
TSH 12.2, although on levothyroxine daily with normal T3-T4.
Normal cortisol level.
CT scan of the head with no acute abnormalities
Heart rate remains stable with no recurrent bradycardia. Had not required temporary pacemaker so far
Echocardiogram 02/28/2019 with preserved biventricular function.
Plan is for echocardiogram.
Pacemaker placement tentatively on 03/26. Follow electrolytes
Acute kidney injury.
Volume status hypovolemic with elevated BUN.
Also with component of retention. Bladder scan 1100 mL requiring straight cath.
Will place Rivera catheter.
Follow renal function.
Continue IV fluids at the lower rate over the next 24 hours.
Hyperkalemia potassium 5.3 improved status post single dose of Lokelma.
Hypothermia on admission.
Does not appear to be toxic
No clinical concern for sepsis
Hypothyroidism on replacement, although with elevated TSH and normal free T4 and T3.
Normal cortisol level.
COPD.
Respiratory status stable with no evidence of exacerbation
Rheumatoid arthritis
SLE.
IBS.
CODE STATUS DNR.
Anticipated Discharge: 24 - 48 hours
Subjective/Interval History
-
Date of Service: March 26, 2024
Objective Data
-
Labs:
Laboratory Results
03/26/24
04:08
Sodium 141
Potassium 4.6
Chloride 110 H
Carbon Dioxide 22
BUN 46 H
Creatinine 1.6 H
Glucose 84
Calcium 9.2
Vital Signs:
Vital Signs
Temp Pulse Resp BP Pulse Ox
97.8 F 77 20 141/88 96
03/26/24 11:11 03/26/24 12:00 03/26/24 11:11 03/26/24 11:52 03/26/24 11:11
I&O
03/25/24 03/26/24 03/27/24
06:59 06:59 06:59
Intake Total 680 / 680
Output Total 1200 / 1200 3480 / 3480 1025 / 1025
Balance -1200 / -1200 -2800 / -2800 -1025 / -1025
Physical Exam
-
General: Well Developed and No Apparent Distress
HEENT: Normocephalic, Atraumatic and Moist Mucous Membranes
Respiratory: Clear to Auscultation
Cardiac: Regular Rhythm and S1/S2; Negative Murmur, Rub or Gallop
GI: Soft, Nontender, Nondistended and Normal Bowel Sounds; Negative Organomegaly
Rectal: Deferred by Provider
Musculoskeletal: No Clubbing, No Cyanosis and No Edema
Skin: Negative Rash
Neuro: Nonfocal/Grossly Intact
--- NOTE | 2024-03-26 14:50 | ITS.CL.PACE ---
[facility] - Pacemaker Implant
Pacemaker Implant
Procedure Report:
Date of Procedure: March 26, 2024
Patient : [id number]
Procedure: Pacemaker Implantation.
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
Implants:
Pulse Generator: Medtronic; Model# W1 DR 01; SN: [id number]
RA Lead: Medtronic; Model# 4574; SN: [id number]
RV Lead: Medtronic; Model# 4074; SN: [id number]
Technique: A time out was performed. The procedure site was identified. The patient was anesthetized by the anesthesia service. Preoperative sedation was administered. The patient was prepped and draped in the usual fashion. Local anesthetic was
applied to the left prepectoral subcutaneous tissue. A 3 inch incision was made 2.5 inches below the left clavicle. A subcutaneous pocket was created with blunt and sharp dissection and hemostasis controlled with Bovie cautery. The left axillary
vein was accessed within the pocket without difficulty. Hemostasis was excellent. The leads were introduced with 7 Fr hemostatic peel away introducer sheaths. The ventricular lead was placed at the right ventricular apex. Multiple shaped stylette's
were required as positioning was somewhat difficult. The atrial lead was placed
in the right atrial appendage. 10 volt pacing did not capture the diaphragm. The leads were secured to the pectoralis muscle and fascia. The leads were appropriately attached to the device. The pocket was irrigated with antibiotic solution. The
device and leads were placed in the pocket. The incision was closed in three layers with absorbable suture. The estimated blood loss was minimal. There were no complications.
Lead Analysis:
RA lead: P: 2.4 mV; Threshold: 0.5 V @ 0.5 ms; Impedance: 931 ohms.
RV lead: R: 13 mV; Threshold: 0.75 V @ 0.5 ms; Impedance: 1216 ohms.
Final Programming: AAIR�DDDR 60-130 beats a minute
Conclusion: Uncomplicated Medtronic pacemaker implant.
Recommendation: Routine post pacemaker care.
--- NOTE | 2024-03-26 15:10 | PTCARENOTE ---
Rec'd pt back from EP lab AAOx1, pt continues to be confused to time& place. Needs freq reorientation. Pt w/LUE immobilizer in place w/aquacell dressing C/D/I. Pt w/no c/o pain at this time. EKG completed. VS stable w/HR in the 60's now & pt is AV
paced on telemetry monitoring. Family at bedside. Medsitter in place for closer monitoring of pt. Plan of care ongoing.
[2024-03-26] MEDS: NON-FORMULARY ITEM 1 DROP RIGHT EYE (18:20)
[2024-03-26] MEDS: ANCEF 5 IV (20:01)
[2024-03-26] MEDS: FLOMAX 0.400000000000000022 MG PO (22:24)
[2024-03-26] MEDS: REFRESH EYE DROPS (PF) BOTH EYES (22:24)
[2024-03-26] MEDS: ATARAX 25 MG PO (22:24)
[2024-03-27] VITALS (13 sets, daily range): BP systolic 97–154; BP diastolic 62–116; PULSE 75; O2SAT 96
[2024-03-27 03:57] LABS: Hematocrit 44.7 % (39.0-52.0); Mean Corp Hgb Conc. 33.6 g/dL (33.0-37.0); Mean Corpuscular Hgb 31.1 pg (27.0-31.0); Mean Corpuscular Volume 92.7 fL (80.0-94.0); Mean Platelet Volume 10.7 fL (7.4-10.4); Platelet Count 174 10^3/uL (130-400); Red Blood Cell Count 4.82 10^6/uL (4.70-6.10); Red Cell Dist. Width 13.8 % (11.5-14.5); White Blood Cell Count 9.8 10^3/uL (4.8-10.8)
[2024-03-27 04:14] LABS: Blood Urea Nitrogen 37 mg/dl (9-20); Calcium 9.3 mg/dl (8.4-10.2); Carbon Dioxide 22 mmol/L (22-30); Chloride 108 mmol/L (98-107); Estimated Creatinine Clearance 42 ml/min; Glucose 86 mg/dl (70-99); Magnesium 1.9 mg/dl (1.6-2.3); Potassium 4.5 mmol/L (3.5-5.1); Sodium 139 mmol/L (135-145); eGFR 48.65
[2024-03-27] MEDS: SYNTHROID 112 MCG PO (05:24)
[2024-03-27] MEDS: ANCEF 5 IV (05:24)
--- NOTE | 2024-03-27 05:55 | PTCARENOTE ---
Left anterior chest dressing remains intact w/ left arm in immobilizer. Pt AAOx1-2, and confused at times. Patient having ? hallucinations, and this RN provided reality orientation. Med sitter remains, and bed alarm active. Rivera draining jad
color urine. Patient currently laying in bed.
--- NOTE | 2024-03-27 08:00 | PTCARENOTE ---
Assumed care of pt from prev nsg shift. Pt AAOx1-2, pt is confused to place & at times to time. Reorients easily, but requires frequent reorientation. Pt /w L chest wall PPM site w/aquacell dressing C/D/I, w/no signs or symptoms of bleeding or
hematoma. Pt's VS stable w/HR in 70's-80's & BP stable at 110/81 this AM. Pt does make frequent attempts to get OOB without assistance. Medsitter remains in place for pt safety. Plan of care ongoing.
[2024-03-27] MEDS: ADVAIR HFA 115/21 MCG INHALER 2 PUFF INH ×2 (08:23→20:41)
--- NOTE | 2024-03-27 08:50 | W.PN.CARDCBS ---
Today's Communication / Plan
-
No objection to discharge from a cardiovascular perspective status post pacemaker
Outpatient wound check in 7 to 10 days
Impression / Plan
-
PCP: Dr. Stauffer
Access Analyst: Previously seen by Dr. Farrell in 2019
Impression:
Presented after unresponsive episode
Symptomatic bradycardia
Wenckebach
Hypothyroidism
h/o orthostatic hypotension
COPD
B12 Deficiency
Solitary kidney, CKD 3b
Epilepsy
SLE
IBS
h/o DVT 2005
Echo 02/28/2019: EF 50%, MAC present, aortic valve sclerosis without stenosis
Plan:
-Presented after unresponsive episode at home. Found w/ HR in 20s, given atropine and improved.
-Initial EKG what appears to be junctional bradycardia.
-Hypothermic on arrival to ER with temp 93.9F, temp improved overnight w/ bear hugger.
-TSH 12.2, continue levothyroxine. Dose increased this admission.
-Status post pacemaker with appropriate lead positions and chest x-ray in the right atrium and right ventricle and ECG this morning demonstrating appropriate atrial sensing and ventricular sensing and pacing.
-Stable from discharge from my standpoint from a cardiovascular perspective and he can follow-up for wound check in our office in 7 to 10 days and continue outpatient follow-up with our service.
HPI: Manohar is an 88 year old male with PMH of hypothyroidism, COPD, B12 deficiency, CKD, epilepsy, SLE, IBS, and prior DVT. He presented to [facility] for evaluation after unresponsive episode at home. He reports he has baseline unsteadiness related to
his B12 deficiency and ambulates with a cane, however over the past few days has felt more unsteady on his feet and has had lower energy. Yesterday he then had reported episode of unresponsiveness where he was found by his son, who he lives with, on
his chair and was unarousable. EMS was called and patient was noted to have a heart rate of 20. He was given atropine and woke back up. He then was brought to the ER where he was found to be hypothermic with temperature of 93.9F. Labwork revealed
TSH of 12.2, despite reported compliance with his OP levothyroxine. Initial EKG shows what appears to be junctional bradycardia. On review of telemetry, he appears to have intermittent Wenckebach. HRs improving this AM as his temperature has
returned to normal. He reports he is overall asymptomatic this AM.
Progress Note - Access Analyst
Subjective
Date of Service: March 27, 2024
Total Time Spent with Patient (in minutes): Status post pacemaker and feels well
Objective
Labs:
03/27/24 03:28
03/27/24 03:28
Labs
Hgb 15.0 g/dL (13.0-18.0) 03/27/24 03:28
Hct 44.7 % (39.0-52.0) 03/27/24 03:28
Plt Count 174 10^3/uL (130-400) 03/27/24 03:28
Sodium 139 mmol/L (135-145) 03/27/24 03:28
Potassium 4.5 mmol/L (3.5-5.1) 03/27/24 03:28
BUN 37 mg/dl (9-20) H 03/27/24 03:28
Creatinine 1.4 mg/dL (0.7-1.3) H 03/27/24 03:28
Glucose 86 mg/dl (70-99) 03/27/24 03:28
Troponins
03/24/24
13:35
Troponin I 0.013
Vital Signs and I&O:
Vital Signs
Temp Pulse Resp BP Pulse Ox
98.1 F 71 16 110/81 99
03/27/24 07:03 03/27/24 08:26 03/27/24 08:26 03/27/24 07:08 03/27/24 08:26
Vital Signs
Temp Pulse Resp BP Pulse Ox
98.1 F 71 16 110/81 99
03/27/24 07:03 03/27/24 08:26 03/27/24 08:26 03/27/24 07:08 03/27/24 08:26
Intake & Output
03/25/24 03/26/24 03/27/24 03/28/24
06:59 06:59 06:59 06:59
Intake Total 680 / 680 740 / 740
Output Total 1200 / 1200 3480 / 3480 2325 / 2325
Balance -1200 / -1200 -2800 / -2800 -1585 / -1585
Physical Exam
Physical Exam
HEENT normocephalic atraumatic
JVP 6
Left deltopectoral groove site clean dry and intact
No hematoma
Chest x-ray inspected without pneumothorax and leads in the right atrium and the tip of the right ventricle
Appropriate atrial sensing and ventricular pacing on telemetry
Alert and orient x 3
Nonfocal neurologically
No extreme edema
--- NOTE | 2024-03-27 09:16 | PN.CDI ---
Addendum entered and electronically signed by Victor Manuel White MD 04/01/24 16:14:
Unable to comment.
Original Note:
CDI
- -
CDI:
Physician Documentation Request
Admit Date: 03/24/24 16:34
Dear Doctor Cindy,
Please review the following and provide your response in the progress notes.
Clinical Indicators:
Pt admitted with syncope/symptomatic bradycardia
03/24 CT head: 'The findings are consistent with a chronic neurodegenerative disease (possibly Alzheimer's dementia)....Moderate white matter leukoaraiosis in the frontal and parietal lobes.'
03/25 per PN history of 'Cognitive impairment'
03/26 Nurses notes: 'attempting to get OOB. Patient stating 'I'm in the kids bedroom, I want to get in my bedroom'....Patient having ? episodes of hallucinations. Patient became agitated w/ nursing staff....'
Based on the above, could you please clarify in the Progress Notes and Discharge Summary which, if any of the following, is the most likely etiology of the confusion/altered mental status.
Encephalopathy - indicate type, such as metabolic, toxic, septic, alcoholic, anoxic, hypertensive etc. due to a specific condition such as UTI, CVA, hyponatremia etc.
Dementia with acute delirium - indicate type fo dementia, such as Alzheimer's, senile, vascular, Lewy body etc.
Acute Delirium - indicate known or suspected etiology such as postoperative, due to opioids or other drugs etc. Can also indicate unknown or mixed etiologies.
Baseline Dementia - indicate type, such as Alzheimer's, senile, vascular, Lewy body etc., and any associated behavioral disturbances (aggressive, combative or violent behavior) if present
Acute or subacute confusional state due to hospitalization.
Hallucinations
Other
Use of terms such as suspected, likely, concern for, or probable (associated with a specific diagnosis that is being evaluated, monitored, or treated as if it exists) are acceptable and can be coded in the inpatient setting, when documented at the
time of discharge.
Thank you,
Bertha Shen RN, BSN
CDI Specialist
Available via [place] [employer]
Please use your independent medical judgment in providing your response.
[2024-03-27] MEDS: KEPPRA 750 MG PO ×2 (09:52→20:26)
[2024-03-27] MEDS: NON-FORMULARY ITEM 1 DROP RIGHT EYE ×3 (09:53→22:07)
[2024-03-27] MEDS: REFRESH EYE DROPS (PF) 1 DROPS BOTH EYES ×3 (09:55→20:26)
[2024-03-27] MEDS: COMBIGAN EYE DROPS 1 DROP LEFT EYE (09:56)
--- NOTE | 2024-03-27 10:00 | PTCARENOTE ---
Pt's washington catheter D/C'd as ordered & pt placed on time & amount. Pt w/urinal at bedside.
--- NOTE | 2024-03-27 10:22 | W.PN.HOSP.TC ---
Today's Communication/Plan
-
Voiding trial
Physical therapy assessment.
Discharge planing
Assessment / Plan
Assessment / Plan
Impression:
Presentation with unresponsiveness episode.
Symptomatic bradycardia/bifascicular block
Acute urine retention.
Acute kidney injury.
Hypothermia on admission
Conditions prior to admission:
Hypothyroidism on replacement
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
History of orthostatic hypotension
Epilepsy
SLE
IBS.
History of DVT in 2005 currently not on anticoagulation
Cognitive impairment.
Plan:
Presentation after episode of unresponsiveness
Found to be bradycardic with heart rate of 20 and administered atropine in the field.
Initial EKG consistent with junctional bradycardia.
Volume status hypovolemic upon presentation.
TSH 12.2, although on levothyroxine daily with normal T3-T4.
Normal cortisol level.
CT scan of the head with no acute abnormalities
Heart rate remains stable with no recurrent bradycardia. Had not required temporary pacemaker so far
ECHO 1. Left ventricle: Normal size and function with an estimated ejection
fraction of 55-60% by visual estimation. No regional wall motion abnormalities
2. Right ventricle: Normal
3. Atria: Normal
4. Mitral valve: Mild mitral regurgitation
5. Aortic valve: Trileaflet with trace aortic insufficiency
6. Tricuspid valve: Mild tricuspid regurgitation with estimated pulmonary
artery systolic pressures 25-30 mmHg
7. When compared to the most recent echocardiogram from 02/28/2019, there has
been no significant change
Status post pacemaker placement on 03/26
Acute kidney injury.
Volume status hypovolemic with elevated BUN.
Also with component of retention. Bladder scan 1100 mL requiring straight cath.
Rivera catheter placed on 03/25
Creatinine improving from 2.2 down to 1.4
Hyperkalemia potassium 5.3 improved status post single dose of Lokelma improved
Initiated on Flomax on 03/26
Voiding trial prior to discharge.
Hypothermia on admission.
Does not appear to be toxic
No clinical concern for sepsis
Hypothyroidism on replacement, although with elevated TSH and normal free T4 and T3.
Normal cortisol level.
COPD.
Respiratory status stable with no evidence of exacerbation
Rheumatoid arthritis
SLE.
IBS.
CODE STATUS DNR.
Anticipated Discharge: Within 24 hours
Subjective/Interval History
-
Date of Service: March 27, 2024
Objective Data
-
Labs:
Laboratory Results
03/27/24
03:28
WBC 9.8
Hgb 15.0
Hct 44.7
Plt Count 174
Sodium 139
Potassium 4.5
Chloride 108 H
Carbon Dioxide 22
BUN 37 H
Creatinine 1.4 H
Glucose 86
Calcium 9.3
Vital Signs:
Vital Signs
Temp Pulse Resp BP Pulse Ox
98.1 F 71 16 110/81 99
03/27/24 07:03 03/27/24 08:26 03/27/24 08:26 03/27/24 07:08 03/27/24 08:26
I&O
03/26/24 03/27/24 03/28/24
06:59 06:59 06:59
Intake Total 680 / 680 740 / 740
Output Total 3480 / 3480 2325 / 2325
Balance -2800 / -2800 -1585 / -1585
Physical Exam
-
General: Well Developed and No Apparent Distress
HEENT: Normocephalic, Atraumatic and Moist Mucous Membranes
Respiratory: Clear to Auscultation
Cardiac: Regular Rhythm and S1/S2; Negative Murmur, Rub or Gallop
GI: Soft, Nontender, Nondistended and Normal Bowel Sounds; Negative Organomegaly
Rectal: Deferred by Provider
Musculoskeletal: No Clubbing, No Cyanosis and No Edema
Skin: Negative Rash
Neuro: Nonfocal/Grossly Intact
[2024-03-27] MEDS: TYLENOL 650 MG PO (11:16)
--- NOTE | 2024-03-27 13:11 | CM ---
Chart reviewed. Patient is independent of ADLS, lives with his son in a [address], ambulates with a SPC and rolling walker. PT/OT evaluation recommending SNF. Referral sent to [facility]. Patient not appropriate level of care for Acute Rehab.
Plan is for the patient to go to SNF when medically stable. CM to follow
[2024-03-27] MEDS: FLOMAX 0.400000000000000022 MG PO (20:26)
[2024-03-27] MEDS: ATARAX 25 MG PO (20:26)
--- NOTE | 2024-03-27 21:10 | PTCARENOTE ---
Pt AAOx1-2, pt is confused to place & at times to time. Reorients easily, but requires frequent reorientation. Pt /w L chest wall PPM site w/aquacell dressing C/D/I, w/no signs or symptoms of bleeding or hematoma. Pt's VS stable w/HR in 70's-80's &
BP stable at 97/62. Pt does make frequent attempts to get OOB without assistance. Medsitter remains in place for pt safety. Pt w/some difficulty voiding since washington cath D/C'd this AM. Pt has voided approx 200 mLs since 1544 & his bladder scans have
slowly increased in volume. Pt voided 10mLs at 2034 & PVR bladder scan was 330 mLs. Next bladder scan due at 0. Plan of care ongoing.
--- NOTE | 2024-03-27 22:11 | PTCARENOTE ---
Asisted pt to void; pt only able to void 10mLs. PVR bladder scanned for 380mLs. Straight cath'd x1 w/14french cath for 360 mLs of yellow urine. Pt tolerated procedure well. Complete bed bath given afterwards. Pt w/call hsu within reach & bed alarm
in place. Plan of care ongoing.
[2024-03-28] VITALS (12 sets, daily range): BP systolic 104–160; BP diastolic 65–96; PULSE 73–105
--- NOTE | 2024-03-28 04:25 | PTCARENOTE ---
Patient unable to void. Bladder scan result 412mls. Patient tolerated treatment, and was straight cath for 600ml of yellow urine. Bed alarm active, call hsu in reach. Tele remains Vpaced.
[2024-03-28] MEDS: SYNTHROID 112 MCG PO (04:54)
[2024-03-28] MEDS: ADVAIR HFA 115/21 MCG INHALER 2 PUFF INH ×2 (07:23→20:33)
[2024-03-28] MEDS: KEPPRA 750 MG PO ×2 (09:09→19:46)
[2024-03-28] MEDS: REFRESH EYE DROPS (PF) 1 DROPS BOTH EYES ×3 (09:10→22:49)
[2024-03-28] MEDS: HEPARIN 5000 UNITS SC ×2 (09:10→19:45)
[2024-03-28] MEDS: COMBIGAN EYE DROPS 1 DROP LEFT EYE (09:11)
[2024-03-28] MEDS: NON-FORMULARY ITEM 1 DROP RIGHT EYE ×3 (09:30→22:53)
--- NOTE | 2024-03-28 10:02 | PTCARENOTE ---
rec'd pt this shift awake and alert but forgetful. Pt pulled off his pacer site dsg. Dsg re-applied. Pt A-paced on monitor, RA. Lungs clear. Pt deneis pain, denies sob. Pts son at bedside. See worklist for VS/I and O and assessments.
--- NOTE | 2024-03-28 10:41 | W.PN.CARDCBS ---
Today's Communication / Plan
-
Awaiting placement
Stable status post pacemaker with outpatient wound check
Impression / Plan
-
PCP: Dr. Stauffer
[employer]: Previously seen by Dr. Farrell in 2019
Impression:
Presented after unresponsive episode
Symptomatic bradycardia
Wenckebach
Hypothyroidism
h/o orthostatic hypotension
COPD
B12 Deficiency
Solitary kidney, CKD 3b
Epilepsy
SLE
IBS
h/o DVT 2005
Echo 02/28/2019: EF 50%, MAC present, aortic valve sclerosis without stenosis
Plan:
-Presented after unresponsive episode at home. Found w/ HR in 20s, given atropine and improved.
-Initial EKG what appears to be junctional bradycardia.
-Hypothermic on arrival to ER with temp 93.9F, temp improved overnight w/ bear hugger.
-TSH 12.2, continue levothyroxine. Dose increased this admission.
-Status post pacemaker with appropriate lead positions and chest x-ray in the right atrium and right ventricle and ECG this morning demonstrating appropriate atrial sensing and ventricular sensing and pacing.
-Stable from discharge from my standpoint from a cardiovascular perspective and he can follow-up for wound check in our office in 7 to 10 days and continue outpatient follow-up with our service.
HPI: Manohar is an 88 year old male with PMH of hypothyroidism, COPD, B12 deficiency, CKD, epilepsy, SLE, IBS, and prior DVT. [facility] after unresponsive episode at home. He reports he has baseline unsteadiness related to
his B12 deficiency and ambulates with a cane, however over the past few days has felt more unsteady on his feet and has had lower energy. Yesterday he then had reported episode of unresponsiveness where he was found by his son, who he lives with, on
his chair and was unarousable. EMS was called and patient was noted to have a heart rate of 20. He was given atropine and woke back up. He then was brought to the ER where he was found to be hypothermic with temperature of 93.9F. Labwork revealed
TSH of 12.2, despite reported compliance with his OP levothyroxine. Initial EKG shows what appears to be junctional bradycardia. On review of telemetry, he appears to have intermittent Wenckebach. HRs improving this AM as his temperature has
returned to normal. He reports he is overall asymptomatic this AM.
Progress Note - [employer]
Subjective
Date of Service: March 28, 2024
Total Time Spent with Patient (in minutes): Stable and feeling better after pacemaker placement
Objective
Labs:
03/27/24 03:28
03/27/24 03:28
Labs
Hgb 15.0 g/dL (13.0-18.0) 03/27/24 03:28
Hct 44.7 % (39.0-52.0) 03/27/24 03:28
Plt Count 174 10^3/uL (130-400) 03/27/24 03:28
Sodium 139 mmol/L (135-145) 03/27/24 03:28
Potassium 4.5 mmol/L (3.5-5.1) 03/27/24 03:28
BUN 37 mg/dl (9-20) H 03/27/24 03:28
Creatinine 1.4 mg/dL (0.7-1.3) H 03/27/24 03:28
Glucose 86 mg/dl (70-99) 03/27/24 03:28
Vital Signs and I&O:
Vital Signs
Temp Pulse Resp BP Pulse Ox
98.2 F 80 16 126/74 93
03/28/24 07:23 03/28/24 07:26 03/28/24 07:26 03/28/24 07:26 03/28/24 09:56
Vital Signs
Temp Pulse Resp BP Pulse Ox
98.2 F 80 16 126/74 93
03/28/24 07:23 03/28/24 07:26 03/28/24 07:26 03/28/24 07:26 03/28/24 09:56
Intake & Output
03/26/24 03/27/24 03/28/24 03/29/24
06:59 06:59 06:59 06:59
Intake Total 680 / 680 740 / 740 840 / 840 250 / 250
Output Total 3480 / 3480 2325 / 2325 1910 / 1910
Balance -2800 / -2800 -1585 / -1585 -1070 / -1070 250 / 250
Physical Exam
Physical Exam
Physical Exam
General: no apparent distress, not acutely ill
Neck: supple. no meningeal signs. normal psoterior pharynx
Heart: s1/s2 regular rate and rhythm, no murmur. equal radial pulses.
Lungs: no acute respiratory distress. clear bilaterally
Abdomen: normal bowel sounds. not tender. no CVAT
Device site clean dry and intact
Neuro: alert and oriented. no focal neurological deficits
Skin: no rash
Psychiatric: well kept. interactive and cooperative
Extremities: no edema. no calf tenderness. negative homans. good distal pulses
[2024-03-28] MEDS: NSS 1000 IV (11:30)
--- NOTE | 2024-03-28 11:30 | PTCARENOTE ---
Pt sitting on side of bed, had breakfast and then complained of feeling lighthead and dizzy and c/o feeling like he was going to pass out. Dr. White at bedside. Pt placed back to bed. Pt stated he felt better after he layed down. Pt bladder
scanned for >400. #16 [place] catheter placed and 600ml obtained.
--- NOTE | 2024-03-28 11:43 | CM ---
Chart reviewed. Patient is independent of ADLS, lives with his son and DIL in a 2 S[address], 0 [address], ambulates with a SPC and rolling walker. Patient with urinary retention and a vasovagal episode. Plan is for patient to be discharged to SNF when
medically stable. CM to follow
--- NOTE | 2024-03-28 13:37 | W.PN.HOSP.TC ---
Today's Communication/Plan
-
Monitor for recurrent orthostasis
Hold Flomax.
IV fluid bolus.
With recurrent retention, replace Rivera catheter.
Continue physical therapy.
Assessment / Plan
Assessment / Plan
Impression:
Presentation with unresponsiveness episode.
Symptomatic bradycardia/bifascicular block
Acute urine retention.
Acute kidney injury.
Hypothermia on admission
Conditions prior to admission:
Hypothyroidism on replacement
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
History of orthostatic hypotension
Epilepsy
SLE
IBS.
History of DVT in 2005 currently not on anticoagulation
Cognitive impairment.
Plan:
Presentation after episode of unresponsiveness
Found to be bradycardic with heart rate of 20 and administered atropine in the field.
Initial EKG consistent with junctional bradycardia.
Volume status hypovolemic upon presentation.
TSH 12.2, although on levothyroxine daily with normal T3-T4.
Normal cortisol level.
CT scan of the head with no acute abnormalities
Heart rate remains stable with no recurrent bradycardia. Had not required temporary pacemaker so far
ECHO 1. Left ventricle: Normal size and function with an estimated ejection
fraction of 55-60% by visual estimation. No regional wall motion abnormalities
2. Right ventricle: Normal
3. Atria: Normal
4. Mitral valve: Mild mitral regurgitation
5. Aortic valve: Trileaflet with trace aortic insufficiency
6. Tricuspid valve: Mild tricuspid regurgitation with estimated pulmonary
artery systolic pressures 25-30 mmHg
7. When compared to the most recent echocardiogram from 02/28/2019, there has
been no significant change
Status post pacemaker placement on 03/26
Acute kidney injury.
Volume status hypovolemic with elevated BUN.
Also with component of retention. Bladder scan 1100 mL requiring straight cath.
Rivera catheter placed on 03/25
Creatinine improving from 2.2 down to 1.4
Hyperkalemia potassium 5.3 improved status post single dose of Lokelma improved
Voiding trial with recurrent retention requiring reinsertion of Rivera catheter on 03/28.
With orthostasis will hold initiated Flomax.
Orthostasis, symptomatic with dizziness.
Patient has a prior history of orthostasis
Hold Flomax.
IV fluid bolus.
Hypothermia on admission.
Does not appear to be toxic
No clinical concern for sepsis
Hypothyroidism on replacement, although with elevated TSH and normal free T4 and T3.
Normal cortisol level.
COPD.
Respiratory status stable with no evidence of exacerbation
Epilepsy/seizure disorder. Continue Keppra
Rheumatoid arthritis
SLE.
IBS.
CODE STATUS DNR.
Anticipated Discharge: 24 - 48 hours
Subjective/Interval History
-
Date of Service: March 28, 2024
Objective Data
-
Vital Signs:
Vital Signs
Temp Pulse Resp BP Pulse Ox
97.8 F 70 20 133/73 92
03/28/24 12:04 03/28/24 12:04 03/28/24 12:04 03/28/24 12:04 03/28/24 12:04
I&O
03/27/24 03/28/24 03/29/24
06:59 06:59 06:59
Intake Total 740 / 740 840 / 840 325 / 325
Output Total 2325 / 2325 191 / 191
Balance -1585 / -1585 -1070 / -1070 325 / 325
Physical Exam
-
General: Well Developed and No Apparent Distress
HEENT: Normocephalic, Atraumatic and Moist Mucous Membranes
Respiratory: Clear to Auscultation
Cardiac: Regular Rhythm and S1/S2; Negative Murmur, Rub or Gallop
GI: Soft, Nontender, Nondistended and Normal Bowel Sounds; Negative Organomegaly
Rectal: Deferred by Provider
Musculoskeletal: No Clubbing, No Cyanosis and No Edema
Skin: Negative Rash
Neuro: Nonfocal/Grossly Intact
--- NOTE | 2024-03-28 18:10 | PTCARENOTE ---
Orthostatic vital signs obtained with (+) results. NSS infusing @ 75ml/hr. Pt assisted to BSC. Passed gas and returned to bed. Denied dizziness or lightheadedness.
[2024-03-28] MEDS: ATARAX 25 MG PO (22:49)
--- NOTE | 2024-03-28 23:04 | PTCARENOTE ---
Received care of pt at handoff. Oriented to person and place. Bed alarm on. Rivera care completed. No c/o pain/discomfort at this time. Tele- V-paced. Alonzo Pradhan chest wall is c/d/i. Currently in bed; call aracelis w/in reach.
[2024-03-29 03:59] VITALS: BP 153/93
[2024-03-29] MEDS: SYNTHROID 112 MCG PO (06:14)
[2024-03-29 08:03] VITALS: BP 123/76
[2024-03-29] MEDS: ADVAIR HFA 115/21 MCG INHALER 2 PUFF INH (08:49)
[2024-03-29] MEDS: KEPPRA 750 MG PO (09:01)
[2024-03-29] MEDS: REFRESH EYE DROPS (PF) 1 DROPS BOTH EYES (09:01)
[2024-03-29] MEDS: COMBIGAN EYE DROPS 1 DROP LEFT EYE (09:01)
[2024-03-29] MEDS: HEPARIN 5000 UNITS SC (09:02)
[2024-03-29] MEDS: TYLENOL 650 MG PO (09:02)
[2024-03-29] MEDS: NON-FORMULARY ITEM 1 DROP RIGHT EYE (09:54)
[2024-03-29 10:39] VITALS: BP 134/70
[2024-03-29 10:51] VITALS: BP 134/70; O2SAT 98
[2024-03-29 10:52] VITALS: BP 134/70; PULSE 60
--- NOTE | 2024-03-29 11:10 | W.DS.TRANS ---
DC Summary - Toe Former Stitchdowns
-
Discharge Instructions:
Discharge Diagnosis/Procedures Pacemaker implant 03/26
Impression:
Presentation with unresponsiveness episode.
Symptomatic bradycardia/bifascicular block
Acute urine retention.
Acute kidney injury.
Hypothermia on admission
Conditions prior to admission:
Hypothyroidism on replacement
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
Solitary kidney with chronic kidney disease
stage IIIb.
History of orthostatic hypotension
Epilepsy
SLE
IBS.
History of DVT in 2005 currently not on
anticoagulation
Cognitive impairment.
Diet Low Cholesterol
Driving Restrictions No driving for 1 week
Bathing Restrictions OK to Shower
Instructions:
Stand-Alone Forms: DC Inst - Implanted Device
Changes to Home Medications: Yes
Discharge Medications:
DC Medications w/original date entered in [employer]
allopurinol 100 mg tablet 100 mg PO DAILY 30 days 03/11/19
cyanocobalamin (vitamin B-12) 1,000 mcg/mL injection solution 1,000 mcg IM MONTHLY 03/11/19
Serum Eye Drop 1 drp RIGHT EYE TID Eye Condition 03/24/24
Steroid Cream 1 applic topical BID Skin Issues 03/24/24
brimonidine 0.2 %-timolol 0.5 % eye drops (Combigan) 1 drp LEFT EYE DAILY Eye Condition 03/24/24
fluticasone propionate 115 mcg-salmeterol 21 mcg/actuation HFA inhaler (Advair HFA) 2 puff inhalation R BID Lung/Breathing Issues 03/24/24
hydroxyzine HCl 25 mg tablet 25 mg PO HS Sleep 03/24/24
levetiracetam 750 mg tablet 750 mg PO Q12 Seizures 03/24/24
polyvinyl alcohol 1.4 % eye drops (Artificial Tears (polyvinyl alcohol)) 1 drp BOTH EYES TID Eye Condition 03/24/24
acetaminophen 325 mg tablet 650 mg (2 x 325 mg) PO Q6HPRN PRN mild pain/ fever>100.5F #30 tabs 03/29/24
levothyroxine 112 mcg tablet 112 mcg PO DAILY @ 0600 #30 tabs 03/29/24
Home Medication Changes
Levothyroxine increased
Celecoxib discontinued due to DANIELLE
Pending Results: No
--- NOTE | 2024-03-29 11:40 | CM ---
Chart reviewed. Patient being discharged to [facility] today via wheelchair van with Acute Care.
--- NOTE | 2024-03-29 12:12 | PTCARENOTE ---
report called to Noa at [facility]. iv and tele removed. pt left with eye drops, belongings from room. pt left via wheelchair van.
== END 2024-03-29 12:23 | DRG 243 ==
LOC: IVU 16:34
PROVIDERS: Internal Medicine Cardiovascular Disease; Nurse Practitioner Adult Health; ADMITTING PHYSICIAN Hospitalist; ATTENDING PHYSICIAN Internal Medicine; EMERGENCY PHYSICIAN Emergency Medicine; FAMILY PHYSICIAN Family Medicine; OTHER PHYSICIAN Internal Medicine Cardiovascular Disease
PROC: 0JH606Z Insertion of Pacemaker, Dual Chamber into Chest Subcutaneous Tissue and Fascia, Open Approach (ICD-10-PCS; 2024-03-26)
PROC: 02H63JZ Insertion of Pacemaker Lead into Right Atrium, Percutaneous Approach (ICD-10-PCS; 2024-03-26)
PROC: 02HK3JZ Insertion of Pacemaker Lead into Right Ventricle, Percutaneous Approach (ICD-10-PCS; 2024-03-26)
DX: I44.1 Atrioventricular block, second degree (principal); N17.9 Acute kidney failure, unspecified; Q60.0 Renal agenesis, unilateral; M32.9 Systemic lupus erythematosus, unspecified; N18.32 Chronic kidney disease, stage 3b; J44.9 Chronic obstructive pulmonary disease, unspecified; E03.9 Hypothyroidism, unspecified; M06.9 Rheumatoid arthritis, unspecified; G40.909 Epilepsy, unspecified, not intractable, without status epilepticus; Z66 Do not resuscitate; I35.8 Other nonrheumatic aortic valve disorders; R68.0 Hypothermia, not associated with low environmental temperature; E87.5 Hyperkalemia; K58.9 Irritable bowel syndrome, unspecified; E53.8 Deficiency of other specified B group vitamins; E86.9 Volume depletion, unspecified; K21.9 Gastro-esophageal reflux disease without esophagitis; R26.81 Unsteadiness on feet; R33.9 Retention of urine, unspecified; R41.89 Other symptoms and signs involving cognitive functions and awareness; Z79.890 Hormone replacement therapy; Z79.899 Other long term (current) drug therapy; Z86.718 Personal history of other venous thrombosis and embolism; Z87.891 Personal history of nicotine dependence; Z87.19 Personal history of other diseases of the digestive system; Z90.49 Acquired absence of other specified parts of digestive tract
CPT/HCPCS: 33208; 70450; 71045; 80048; 80053; 81003; 82533; 83605; 83735; 84439; 84443; 84481; 84484; 85025; 85027; 87040; 93005; 93306; 94640; 96374; 96375; 97116; 97162; 97167; 99291; C1785; C1892; C1898; Q9967

== ENCOUNTER → 2024-04-03 14:15 | Outpatient (REF) | payer OTHER, MEDICARE, BC, SELFPAY ==
[2024-04-03 15:54] LABS: % Eosinophils 4.8 % (0-6); % Immature Granulocytes 0.5 % (0-0.5); % Lymphocytes 20.4 % (20.5-51.1); % Neutrophils 61.3 % (42.2-75.2); Absolute Basophils 0.1 10^3/uL (0-0.2); Absolute Eosinophils 0.5 10^3/uL (0-0.7); Absolute Immature Granulocytes 0.1 10^3/uL (0-0.05); Absolute Lymphocytes 2.3 10^3/uL (1.2-3.4); Absolute Monocytes 1.4 10^3/uL (0.1-0.6); Absolute Neutrophils 6.9 10^3/uL (1.4-6.5); Hematocrit 39.4 % (39.0-52.0); Hemoglobin 13.3 g/dL (13.0-18.0); Mean Corp Hgb Conc. 33.8 g/dL (33.0-37.0); Mean Corpuscular Hgb 31.2 pg (27.0-31.0); Mean Corpuscular Volume 92.5 fL (80.0-94.0); Mean Platelet Volume 11.4 fL (7.4-10.4); Nucleated Red Blood Cells % 0 % (-); Platelet Count 238 10^3/uL (130-400); Red Blood Cell Count 4.26 10^6/uL (4.70-6.10); Red Cell Dist. Width 14.2 % (11.5-14.5); White Blood Cell Count 11.3 10^3/uL (4.8-10.8)
[2024-04-03 15:59] LABS: Blood Urea Nitrogen 44 mg/dl (9-20); Calcium 8.7 mg/dl (8.4-10.2); Carbon Dioxide 22 mmol/L (22-30); Chloride 106 mmol/L (98-107); Glucose 83 mg/dl (70-99); Potassium 4.4 mmol/L (3.5-5.1); Sodium 138 mmol/L (135-145); eGFR 44.78
== END ==
LOC: OLABP 14:15
PROVIDERS: ATTENDING PHYSICIAN Student in an Organized Health Care Education/Training Program
DX: R00.1 Bradycardia, unspecified (principal); G31.84 Mild cognitive impairment of uncertain or unknown etiology; Z48.812 Encounter for surgical aftercare following surgery on the circulatory system; I44.1 Atrioventricular block, second degree; I95.1 Orthostatic hypotension; N17.9 Acute kidney failure, unspecified; J44.9 Chronic obstructive pulmonary disease, unspecified; Q60.0 Renal agenesis, unilateral; N18.32 Chronic kidney disease, stage 3b; M33.29 Polymyositis with other organ involvement
CPT/HCPCS: 36415; 80048; 85025

== ENCOUNTER → 2024-04-04 10:52 | Outpatient (REF) | payer OTHER, MEDICARE, BC, SELFPAY ==
[2024-04-04 12:52] LABS: % Eosinophils 5.4 % (0-6); % Immature Granulocytes 0.5 % (0-0.5); % Lymphocytes 21.5 % (20.5-51.1); % Monocytes 12.7 % (1.7-9.3); % Neutrophils 58.9 % (42.2-75.2); Absolute Basophils 0.1 10^3/uL (0-0.2); Absolute Eosinophils 0.6 10^3/uL (0-0.7); Absolute Immature Granulocytes 0.1 10^3/uL (0-0.05); Absolute Lymphocytes 2.3 10^3/uL (1.2-3.4); Absolute Monocytes 1.4 10^3/uL (0.1-0.6); Absolute Neutrophils 6.3 10^3/uL (1.4-6.5); Hematocrit 39.2 % (39.0-52.0); Hemoglobin 13.3 g/dL (13.0-18.0); Mean Corp Hgb Conc. 33.9 g/dL (33.0-37.0); Mean Corpuscular Hgb 31.1 pg (27.0-31.0); Mean Corpuscular Volume 91.8 fL (80.0-94.0); Mean Platelet Volume 10.9 fL (7.4-10.4); Nucleated Red Blood Cells % 0 % (-); Platelet Count 251 10^3/uL (130-400); Red Blood Cell Count 4.27 10^6/uL (4.70-6.10); Red Cell Dist. Width 13.8 % (11.5-14.5); White Blood Cell Count 10.8 10^3/uL (4.8-10.8)
[2024-04-04 13:41] LABS: Blood Urea Nitrogen 41 mg/dl (9-20); Calcium 8.7 mg/dl (8.4-10.2); Carbon Dioxide 21 mmol/L (22-30); Chloride 107 mmol/L (98-107); Glucose 84 mg/dl (70-99); Potassium 4.7 mmol/L (3.5-5.1); Sodium 139 mmol/L (135-145); eGFR 44.78
== END ==
LOC: OLABP 10:52
PROVIDERS: ATTENDING PHYSICIAN Student in an Organized Health Care Education/Training Program
DX: R00.1 Bradycardia, unspecified (principal); G31.84 Mild cognitive impairment of uncertain or unknown etiology; Z48.812 Encounter for surgical aftercare following surgery on the circulatory system; I44.1 Atrioventricular block, second degree; I95.1 Orthostatic hypotension; N17.9 Acute kidney failure, unspecified; J44.9 Chronic obstructive pulmonary disease, unspecified; Q60.0 Renal agenesis, unilateral; N18.32 Chronic kidney disease, stage 3b
CPT/HCPCS: 36415; 80048; 85025

== ENCOUNTER 2024-05-20 13:01 | Emergency (ER) | payer MEDICARE, BC, SELFPAY ==
[2024-05-20 13:08] VITALS: BP 120/75
--- NOTE | 2024-05-20 15:29 | ED.GENMED ---
History of Present Illness
<Thais Montalvo MD, Resident - Last Filed: 05/20/24 15:56>
General
Chief Complaint: Extremity Pain (non-traumatic)
Source: patient
Exam Limitations: none
Time Seen by Provider: 05/20/24 15:03
Nursing documentation reviewed up to this point in time: agreed with
History of Present Illness
History of Present Illness:
The patient 89 year old male presented with bilateral foot pain which started about 2 days ago. The patient has a PMH of Hypothyroidism, COPD, chronic kidney disease stage IIIb, orthostatic hypotension, Epilepsy, SLE, IBS, history of DVT in 2005. He
and her daughter reported that the patient started to PT3 days ago and has been working on his foot recently. He reported a shock like pain and sensitive to touch. The patient denied having any trauma recently. Patient does not remember if he had
any food recently which might have exacerbated his gout.
If applicable-neuro sx onset
Date of onset of symptoms: 05/20/24
Past History
<Thais Montalvo MD, Resident - Last Filed: 05/20/24 15:56>
Past History
ED Past Medical History: COPD, GERD, Seizures, Hypothyroidism and Other (Hypothyroidism, solitary kidney, lupus, rheumatoid arthritis, IBS)
ED Past Surgical History: Appendectomy
Social History
Tobacco: Former smoker
Alcohol: None
Drug: None
Personal:
Living: with family
Employment: Retired
Phy Exam
<Thais Montalvo MD, Resident - Last Filed: 05/20/24 15:56>
Physical Exam
Physical Exam:
Bilateral foot was painful to touch and sensitive. The color of the skin was some erythematous. There was no broken skin area. He had deformative toes in his bilateral foot and deformative fingers in his both hands due his RA and gout disease.
General Physical Exam
General Presentation: well appearing and no apparent distress
General age: appears stated age
General Skin: warm and dry
General Habitus: elderly
General Mental: alert
General Hydration: appears well hydrated
General Chronic Disability: other (deformity on both fingers and toes )
Course
<Thais Montalvo MD, Resident - Last Filed: 05/20/24 15:56>
Orders/Labs/Results
Orders:
Orders
05/20/24 15:24
Foot, Left 3 View [CR Foot - Left Min 3 Views] Urgent
Comment:
Reason For Exam: pain
Foot, Right 3 View [CR Foot - Right Min 3 Views] Urgent
Comment:
Reason For Exam: pain
05/20/24 15:26
Oxycodone [Roxicodone] 5 mg PO NOW STA
05/20/24 16:03
CBC/With ESR Urgent
CRP [C-Reactive Protein] Urgent
Comprehensive Metabolic Panel Urgent
Uric Acid Urgent
Abnormal Lab Results
05/20/24
16:03
WBC 13.1 H 10^3/uL
(4.8-10.8)
MCH 31.5 H pg
(27.0-31.0)
Abs Immat Gran (auto) 0.1 H 10^3/uL
(0-0.05)
Absolute Lymphs (auto) 4.1 H 10^3/uL
(1.2-3.4)
Absolute Monos (auto) 2.0 H 10^3/uL
(0.1-0.6)
Monocytes % 15.5 H %
(1.7-9.3)
ESR 42 H mm/hour
(0-20)
Potassium 5.4 H mmol/L
(3.5-5.1)
Carbon Dioxide 21 L mmol/L
(22-30)
BUN 61 H mg/dl
(9-20)
Creatinine 2.1 H mg/dL
(0.7-1.3)
Glucose 135 H mg/dl
(70-99)
Total Protein 8.3 H g/dl
(6.3-8.2)
05/20/24 16:03
05/20/24 16:03
Vital Signs
Initial and Last Documented VS:
Initial Vital Signs
Temp Pulse Resp BP Pulse Ox
97.7 F 98 20 120/75 95
05/20/24 13:08 05/20/24 13:08 05/20/24 13:08 05/20/24 13:08 05/20/24 13:08
Last Documented Vital Signs
Temp Pulse Resp BP Pulse Ox
97.7 F 98 20 120/75 95
05/20/24 13:08 05/20/24 13:08 05/20/24 13:08 05/20/24 13:08 05/20/24 13:08
<Anders Bird, DO - Last Filed: 05/20/24 16:47>
Orders/Labs/Results
Orders:
Orders
05/20/24 15:24
Foot, Left 3 View [CR Foot - Left Min 3 Views] Urgent
Comment:
Reason For Exam: pain
Foot, Right 3 View [CR Foot - Right Min 3 Views] Urgent
Comment:
Reason For Exam: pain
05/20/24 15:26
Oxycodone [Roxicodone] 5 mg PO NOW STA
05/20/24 16:03
CBC/With ESR Urgent
CRP [C-Reactive Protein] Urgent
Comprehensive Metabolic Panel Urgent
Uric Acid Urgent
Abnormal Lab Results
05/20/24
16:03
WBC 13.1 H 10^3/uL
(4.8-10.8)
MCH 31.5 H pg
(27.0-31.0)
Abs Immat Gran (auto) 0.1 H 10^3/uL
(0-0.05)
Absolute Lymphs (auto) 4.1 H 10^3/uL
(1.2-3.4)
Absolute Monos (auto) 2.0 H 10^3/uL
(0.1-0.6)
Monocytes % 15.5 H %
(1.7-9.3)
ESR 42 H mm/hour
(0-20)
Potassium 5.4 H mmol/L
(3.5-5.1)
Carbon Dioxide 21 L mmol/L
(22-30)
BUN 61 H mg/dl
(9-20)
Creatinine 2.1 H mg/dL
(0.7-1.3)
Glucose 135 H mg/dl
(70-99)
Total Protein 8.3 H g/dl
(6.3-8.2)
05/20/24 16:03
05/20/24 16:03
Vital Signs
Initial and Last Documented VS:
Initial Vital Signs
Temp Pulse Resp BP Pulse Ox
97.7 F 98 20 120/75 95
05/20/24 13:08 05/20/24 13:08 05/20/24 13:08 05/20/24 13:08 05/20/24 13:08
Last Documented Vital Signs
Temp Pulse Resp BP Pulse Ox
97.7 F 98 20 120/75 95
05/20/24 13:08 05/20/24 13:08 05/20/24 13:08 05/20/24 13:08 05/20/24 13:08
<Thais Montalvo MD, Resident - Last Filed: 05/20/24 15:56>
MDM/Problems Addressed
Differential Diagnosis Includes:
Stress fracture/trauma?
Infection/arthritis?
Gout exacerbated?
Chronic conditions affecting care: Kidney disease
<Anders Bird DO - Last Filed: 05/20/24 16:47>
*Radiology
Radiology exam reviewed: radiology read reviewed
*Pulse Oximetry
Patient hypoxic: no
*Critical Care Note
Total Time (30-74mins, 75-104mins- exclusive of procedures): Not Applicable
ED Attending Note
<Thais Montalvo MD, Resident - Last Filed: 05/20/24 15:56>
-
Portions of this chart may have been created with voice recognition software.� Occasional wrong word or��sound alike� substitutions may have occurred due to the inherent limitations of voice recognition software.
<Anders Bird, - Last Filed: 05/20/24 16:47>
ED Attending Note
Patient seen and examined by attending physician: Yes
I performed a history and physical exam of patient and discussed management with resident, I reviewed resident's note and agree with documented findings and plan of care.: Yes
ED Attending Note:
seen with resident, examined independently, RA not on meds, bilateral foot pain, started PT recently, feet are warm, not cellulitic, will check xray, labs, inflammatory markers,consideration for short burst of prednisone
Discharge Plan
Departure
Patient Disposition: Home (Routine Discharge)
Date of Disposition: 05/20/24
Time of Disposition: 16:45
Patient with high blood pressure during this ER visit?: No
Condition: Good
Discharge Problem:
Rheumatoid arthritis, Chronic kidney disease, stage 3b
Instructions: Gout ED
Prescriptions:
New
methylprednisolone [Medrol (Ramírez)] 4 mg tablets,dose pack
See Rx Instructions .ROUTE .COMPLEX Qty: 21 0RF
Rx Instructions:
for 6 days
No Action
hydroxyzine HCl 25 mg tablet
25 mg PO HS
levetiracetam 750 mg tablet
750 mg PO Q12
fluticasone propion-salmeterol [Advair HFA] 115-21 mcg/actuation HFA aerosol inhaler
2 puff INHALATION R BID
brimonidine-timolol [Combigan] 0.2-0.5 % drops
1 drp LEFT EYE DAILY
polyvinyl alcohol [Artificial Tears (polyvin alc)] 1.4 % Drops
1 drp BOTH EYES TID
Serum Eye Drop
1 drp RIGHT EYE TID
Patient Comments:
03/24/2024: Family states its made from his blood
Steroid Cream
1 applic topical BID
Patient Comments:
03/24/2024: apply to spot on upper chest
acetaminophen 325 mg Tablet
650 mg PO Q6HPRN PRN (Reason: mild pain/ fever>100.5F) Qty: 30 0RF
levothyroxine 112 mcg Tablet
112 mcg PO DAILY @ 0600 Qty: 30 0RF
allopurinol 100 MG tablet
100 mg PO DAILY 30 Days 0RF
cyanocobalamin (vitamin B-12) 1,000 MCG/ML solution
1,000 mcg IM MONTHLY 0RF
Referrals:
Zachary Stauffer MD [Family Provider] - Next open appointment
Mere Benson MD [Active] - Next open appointment
Interventions
Interventions:
*Risk Screen - Suicide Last Done: 05/20/24 13:08
*General Assessment Last Done: 05/20/24 13:08
*Neglect/Abuse Screening Last Done: 05/20/24 13:08
ED-Skin Assessment Last Done: 05/20/24 13:57
ED-Musculoskeletal Assessment Last Done: 05/20/24 13:57
Discharge Date and Time
Print Language: [id number]
[2024-05-20 16:17] LABS: % Basophils 1.2 % (0-2); % Eosinophils 3.9 % (0-6); % Immature Granulocytes 0.5 % (0-0.5); % Lymphocytes 31.2 % (20.5-51.1); % Monocytes 15.5 % (1.7-9.3); % Neutrophils 47.7 % (42.2-75.2); Absolute Basophils 0.2 10^3/uL (0-0.2); Absolute Eosinophils 0.5 10^3/uL (0-0.7); Absolute Immature Granulocytes 0.1 10^3/uL (0-0.05); Absolute Lymphocytes 4.1 10^3/uL (1.2-3.4); Absolute Neutrophils 6.2 10^3/uL (1.4-6.5); Hematocrit 46.6 % (39.0-52.0); Hemoglobin 16.5 g/dL (13.0-18.0); Mean Corp Hgb Conc. 35.4 g/dL (33.0-37.0); Mean Corpuscular Hgb 31.5 pg (27.0-31.0); Mean Corpuscular Volume 88.9 fL (80.0-94.0); Mean Platelet Volume 10.1 fL (7.4-10.4); Nucleated Red Blood Cells % 0 % (-); Platelet Count 309 10^3/uL (130-400); Red Blood Cell Count 5.24 10^6/uL (4.70-6.10); Red Cell Dist. Width 14.2 % (11.5-14.5); White Blood Cell Count 13.1 10^3/uL (4.8-10.8)
[2024-05-20] MEDS: ROXICODONE 5 MG PO (16:32)
[2024-05-20 16:37] LABS: ALT (SGPT) 36 U/L (0-50); AST (SGOT) 44 U/L (17-59); Albumin 4.8 g/dl (3.5-5.0); Alkaline Phosphatase 111 U/L (38-126); Blood Urea Nitrogen 61 mg/dl (9-20); Calcium 10.1 mg/dl (8.4-10.2); Carbon Dioxide 21 mmol/L (22-30); Chloride 105 mmol/L (98-107); Glucose 135 mg/dl (70-99); Potassium 5.4 mmol/L (3.5-5.1); Sodium 141 mmol/L (135-145); Total Bilirubin 0.8 mg/dl (0.2-1.3); Total Protein 8.3 g/dl (6.3-8.2); eGFR 29.72
[2024-05-20 16:38] LABS: Uric Acid 7.2 mg/dl (3.5-8.5)
[2024-05-20 16:42] LABS: Erythrocyte Sed Rate 42 mm/hour (0-20)
[2024-05-20 17:24] VITALS: BP 146/82
[2024-05-20 17:25] VITALS: BP 146/82
== END 2024-05-20 17:25 | disposition home or self-care (01) ==
LOC: EMR 13:01
PROVIDERS: EMERGENCY PHYSICIAN Emergency Medicine; FAMILY PHYSICIAN Family Medicine
DX: M79.672 Pain in left foot (principal); M79.671 Pain in right foot; L53.9 Erythematous condition, unspecified; N18.32 Chronic kidney disease, stage 3b; M06.9 Rheumatoid arthritis, unspecified; E03.9 Hypothyroidism, unspecified; J44.9 Chronic obstructive pulmonary disease, unspecified; G40.909 Epilepsy, unspecified, not intractable, without status epilepticus; K21.9 Gastro-esophageal reflux disease without esophagitis; K58.9 Irritable bowel syndrome, unspecified; M10.9 Gout, unspecified; K57.92 Diverticulitis of intestine, part unspecified, without perforation or abscess without bleeding; M32.9 Systemic lupus erythematosus, unspecified; Q60.0 Renal agenesis, unilateral; Z95.0 Presence of cardiac pacemaker; Z87.891 Personal history of nicotine dependence; Z86.718 Personal history of other venous thrombosis and embolism; Z85.828 Personal history of other malignant neoplasm of skin; Z87.01 Personal history of pneumonia (recurrent)
CPT/HCPCS: 99283; 73630; 80053; 84550; 85025; 85652; 86140

== ENCOUNTER → 2024-06-14 17:31 | Outpatient (REF) | payer MEDICARE, BC, SELFPAY ==
[2024-06-14 19:04] LABS: Urine Albumin 1+ (Neg - Trace); Urine Bilirubin Negative (Negative); Urine Character Very Cloudy (Clear); Urine Color Yellow; Urine Glucose Negative (Negative); Urine Ketone Negative (Negative); Urine Leukocyte 2+ (Negative); Urine Nitrite Negative (Negative); Urine Occult Blood 1+ (Negative); Urine Specific Gravity 1.015 (<1.030); Urine Urobilinogen Negative (Neg - 1+)
[2024-06-14 19:21] LABS: Urine Red Blood Cell 0-2 /HPF (0-2); Urine Squamous Cell 0-2 /LPF (Few); Urine White Cell 26-30 /HPF (0-5)
== END ==
LOC: CLAB 17:31
PROVIDERS: ATTENDING PHYSICIAN Specialist
DX: N39.0 Urinary tract infection, site not specified (principal)
CPT/HCPCS: 81003; 81015

== ENCOUNTER → 2024-06-18 15:30 | Outpatient (REF) | payer MEDICARE, BC, SELFPAY | LOC: CLAB 15:30 | PROVIDERS: ATTENDING PHYSICIAN Specialist | DX: N39.0 Urinary tract infection, site not specified (principal) | CPT/HCPCS: 87077; 87086; 87186 ==

== ENCOUNTER 2024-07-05 19:36 | Inpatient (IN) | payer MEDICARE, BC, SELFPAY ==
[2024-07-05] VITALS (7 sets, daily range): BP systolic 122–155; BP diastolic 65–87; BMI 23.2; BMI 22.5
[2024-07-05 16:01] LABS: % Basophils 0.8 % (0-2); % Eosinophils 2.8 % (0-6); % Immature Granulocytes 0.4 % (0-0.5); % Lymphocytes 18.3 % (20.5-51.1); % Monocytes 9.1 % (1.7-9.3); % Neutrophils 68.6 % (42.2-75.2); Absolute Basophils 0.2 10^3/uL (0-0.2); Absolute Eosinophils 0.5 10^3/uL (0-0.7); Absolute Immature Granulocytes 0.1 10^3/uL (0-0.05); Absolute Lymphocytes 3.4 10^3/uL (1.2-3.4); Absolute Monocytes 1.7 10^3/uL (0.1-0.6); Absolute Neutrophils 12.9 10^3/uL (1.4-6.5); Hematocrit 42.4 % (39.0-52.0); Hemoglobin 14.1 g/dL (13.0-18.0); Mean Corp Hgb Conc. 33.3 g/dL (33.0-37.0); Mean Corpuscular Hgb 31.2 pg (27.0-31.0); Mean Corpuscular Volume 93.8 fL (80.0-94.0); Mean Platelet Volume 10.2 fL (7.4-10.4); Nucleated Red Blood Cells % 0 % (-); Platelet Count 221 10^3/uL (130-400); Red Blood Cell Count 4.52 10^6/uL (4.70-6.10); Red Cell Dist. Width 15.3 % (11.5-14.5); White Blood Cell Count 18.8 10^3/uL (4.8-10.8)
[2024-07-05 16:14] LABS: ALT (SGPT) 45 U/L (0-50); AST (SGOT) 54 U/L (17-59); Albumin 4.5 g/dl (3.5-5.0); Alkaline Phosphatase 66 U/L (38-126); Blood Urea Nitrogen 41 mg/dl (9-20); Calcium 9.7 mg/dl (8.4-10.2); Carbon Dioxide 26 mmol/L (22-30); Chloride 99 mmol/L (98-107); Glucose 110 mg/dl (70-99); Potassium 5.1 mmol/L (3.5-5.1); Sodium 138 mmol/L (135-145); Total Bilirubin 0.7 mg/dl (0.2-1.3); Total Protein 7.5 g/dl (6.3-8.2); eGFR 41.19
[2024-07-05 16:14] LABS: Urine Albumin 3+ (Neg - Trace); Urine Bilirubin Negative (Negative); Urine Character Very Cloudy (Clear); Urine Color Yellow; Urine Glucose Negative (Negative); Urine Ketone Negative (Negative); Urine Leukocyte 2+ (Negative); Urine Nitrite Negative (Negative); Urine Occult Blood 4+ (Negative); Urine Specific Gravity 1.015 (<1.030); Urine Urobilinogen Negative (Neg - 1+)
[2024-07-05 16:25] LABS: Urine Red Blood Cell >100 /HPF (0-2)
--- NOTE | 2024-07-05 16:29 | ED.GENMED ---
History of Present Illness
General
Chief Complaint: Urinary Symptoms
Source: patient
Exam Limitations: none
Time Seen by Provider: 07/05/24 16:20
Nursing documentation reviewed up to this point in time: agreed with
History of Present Illness
History of Present Illness:
Patient is an 89-year-old male with history of COPD chronic kidney disease stage III , born with one kidney, IBS DVT, bradycardia, Pacemaker hypertension, lupus presents to the ER with family. Patient recently was treated for UTI by urologist
Dr. Kelly. He completed amoxicillin on Monday. He felt better and reports the frequency went away however today he is now feeling urgency and not being able to get his urine out normally. Family also ports patient is weaker and his gait is
slightly off because of being weak. He is slightly more confused than normal. He is eating and drinking
Past History
Past History
ED Past Medical History: COPD, GERD, Seizures, Hypothyroidism and Other (Hypothyroidism, solitary kidney, lupus, rheumatoid arthritis, IBS)
ED Past Surgical History: Appendectomy
Social History
Tobacco: Former smoker
Alcohol: None
Drug: None
Personal:
Living: with family
Employment: Retired
Phy Exam
General Physical Exam
General Presentation: no apparent distress
General age: appears stated age
General Skin: warm and dry
General Mental: alert
Cardiovascular Exam
Cardiovascular Exam: regular rate/rhythm, no murmur and normal peripheral pulses
Pulmonary Exam
Pulmonary Exam: lungs clear and no respiratory distress
Neurological Exam
Neurological Exam: alert
Musculoskeletal Exam
Musculoskeletal Exam: full ROM
Skin Exam
Skin Exam: normal color and warm/dry
Psychiatric Exam
Psychiatric Exam: normal mood/affect
Course
Orders/Labs/Results
Orders:
Orders
07/05/24 Breakfast
Cholesterol Lowering
At Your Request: Limited Participation
Does patient need a safe tray?: No
Cholesterol Lowering: Sodium, 2 Gram
07/05/24 15:45
Complete Blood Count/With Diff Urgent
Comprehensive Metabolic Panel Urgent
07/05/24 16:02
Urinalysis Reflex To Culture Urgent
Date Specimen was Collected: 07/05/24
Time Specimen was Collected: 15:37
Urine Microscopic Reflex Cult Urgent
Urine Culture Urgent
JADIEL Source: U
Specimen Description:
Date Specimen was Collected: 07/05/24
Time Specimen was Collected: 15:37
07/05/24 16:44
Bladder Scan- Treatment ONCE
07/05/24 17:33
CT Abd/pel Without Iv Or Oral Urgent
Comment:
Reason For Exam: urgency retention
07/05/24 17:43
CefTRIAXone [Rocephin] 1,000 mg IV NOW STA
07/05/24 18:33
Lactic Acid Urgent
Blood Culture Routine
JADIEL Source: Blood/Venous
Specimen Description:
Blood Culture Urgent
JADIEL Source: Blood/Venous
Specimen Description:
07/05/24 18:57
Admit/Transfer Patient As Directed
Co-Sign Provider:
Level of Care: Inpatient admission
Assign to:: Telemetry
Physician / Group: [email or web address]
Diagnosis: UTI suspect failed OP ABx
Reason for Telemetry: Arrhythmia
Date to Stop Telemetry: 07/08/24
Time to Stop Telemetry: 11:00
Reason for Hospitalization: acute gait dysfunction
AMS suspect acute infective encephalopathy
UTI suspect failed OP ABx
Expected length of stay greater than two midnights?: Yes
ELOS- Estimated Length of Stay in days: 3
I certify the patient meets the requirements for IP care: Yes
07/05/24 21:13
0.9% Sodium Chloride 1000 ml [Nss] 1,000 ml IV 80 mls/hr
Acetaminophen [Tylenol] 650 mg PO Q6HPRN PRN
Bisacodyl [Dulcolax] 10 mg RECTAL [id number] PRN
Docusate W/Senna [Senokot-S] 1 tablet PO BIDPRN PRN
Fluticasone/Salmeterol 115/21 [Advair Hfa 115/21 Mcg Inhaler] 2 puff INH R BID
Heparin 5,000 units SC Q12
Polyethylene Glycol Powder [Miralax] 17 grams PO DAILYPRN PRN
07/05/24 21:13
Activity As Directed
Activity Level: With Assistance
Bladder Scan As Directed
Follow Bladder Retention/Intermittent Cath Algorithm?: Yes
PRN if no void in __ hours: 6
Frequency: Per Retention Algorithm
If Bladder Scan Result >: 400
then:: Straight cath
Intake/ Output As Directed
Frequency: Per unit guidelines
Straight Cath As Directed
Frequency: Per Retention Algorithm
Additional Instructions: straight cath as needed per acute urinary retention algorithm for 24 hrs
Additional Instructions: for bladder scan greater than 400 mL
Vital Signs As Directed
Frequency: q8h
DX Deep Vein Thrombosis Video Routine
07/05/24 21:24
Artificial Tears (Pf) [Refresh Eye Drops (Pf)] 1 drops BOTH EYES TIDPRN PRN
07/05/24 22:00
HydrOXYZINE [Atarax] 25 mg PO HS
Levetiracetam [Keppra] 750 mg PO Q12
07/06/24 06:00
Basic Metabolic Panel IN AM
Complete Blood Count/No Diff IN AM
Levothyroxine [Synthroid] 100 mcg PO DAILY@0600
Physical Therapy Consult [Pt Eval And Treat] IN AM
Activity Level: With Assistance
07/06/24 08:00
Allopurinol [Zyloprim] 300 mg PO DAILY
Brimonidine Tartrate/Timolol [Combigan Eye Drops] 1 drop LEFT EYE DAILY
07/06/24 18:00
CefTRIAXone [Rocephin] 1,000 mg IV Q24H
07/08/24 11:00
DC Protocol for Telemetry ONCE
Abnormal Lab Results
07/05/24 07/05/24
15:45 16:02
WBC 18.8 H 10^3/uL
(4.8-10.8)
RBC 4.52 L 10^6/uL
(4.70-6.10)
MCH 31.2 H pg
(27.0-31.0)
RDW 15.3 H %
(11.5-14.5)
Abs Immat Gran (auto) 0.1 H 10^3/uL
(0-0.05)
Absolute Neuts (auto) 12.9 H 10^3/uL
(1.4-6.5)
Absolute Monos (auto) 1.7 H 10^3/uL
(0.1-0.6)
Lymphocytes % 18.3 L %
(20.5-51.1)
BUN 41 H mg/dl
(9-20)
Creatinine 1.6 H mg/dL
(0.7-1.3)
Glucose 110 H mg/dl
(70-99)
Ur Occult Blood Reflex 4+ A
(Negative)
Leukocyte Esterase Rfl 2+ A
(Negative)
Urine RBC >100 A /HPF
(0-2)
Urine Albumin (Reflex) 3+ A
(Neg - Trace)
07/05/24 15:45
07/05/24 15:45
Vital Signs
Initial and Last Documented VS:
Initial Vital Signs
Temp Pulse Resp BP Pulse Ox
97.5 F 87 20 154/81 95
07/05/24 15:32 07/05/24 15:32 07/05/24 15:32 07/05/24 15:32 07/05/24 15:32
Last Documented Vital Signs
Temp Pulse Resp BP Pulse Ox
97.7 F 74 18 111/54 97
07/06/24 03:51 07/06/24 07:52 07/06/24 07:52 07/06/24 03:51 07/06/24 07:52
MDM/Problems Addressed
Differential Diagnosis Includes:
Not limited to UTI, pyelonephritis, urinary retention, stones
MDM/Problems Addressed:
Patient is an 89-year-old male who recently completed antibiotics for UTI presents back with difficulty urinating. Now he feels urgency and is having difficulty urinating.
Pt presents awake alert no acute distress white count elevated 18,000 (bun/creat) elevated but at baseline. UA reviewed shows greater than 100 RBCs 2+ leuks and white blood cells obscured due to RBCs in urine.
patient's previous culture reviewed from June 18 susceptible to Rocephin. Patient was retaining about 400 cc of urine but was able to urinate on his own.
With patient's symptoms elevated white count will obtain CAT scan to rule out stone however with age symptoms weakness and very minimal confusion as per family
will admit for IV antibiotics given increased weakness, mild confusion UTI w/ age and elevated wbc.
CAT scan that shows severe acute cystitis with moderate urinary bladder distention wall thickening and perivesicular inflammation
Chronic conditions affecting care:
Patient with renal insufficiency born with 1 kidney
*Radiology
Radiology exam reviewed: radiology read reviewed
*Pulse Oximetry
Patient hypoxic: no
*Critical Care Note
Total Time (30-74mins, 75-104mins- exclusive of procedures): Not Applicable
ED Attending Note
-
Portions of this chart may have been created with voice recognition software.� Occasional wrong word or��sound alike� substitutions may have occurred due to the inherent limitations of voice recognition software.
Discharge Plan
Departure
Patient Disposition: Admit
Date of Disposition: 07/05/24
Time of Disposition: 18:07
Admit to: Med/Surg
Admit to doctor: hospitalist
Presentation/result/management discussed w/ accepting MD/DO: Hospitalist
Patient with high blood pressure during this ER visit?: Yes
Condition: Fair
Covid-19: Not Applicable
Discharge Problem:
Acute UTI
Interventions
Interventions:
*Risk Screen - Suicide Last Done: 07/05/24 15:30
*General Assessment Last Done: 07/05/24 15:35
*Neglect/Abuse Screening Last Done: 07/05/24 15:35
*ED COVID-19 Vaccine History Last Done: 07/05/24 16:15
ED-Male Genitourinary Assessment Last Done: 07/05/24 19:49
Discharge Date and Time
Discharge Date/Time: 07/05/24 21:04
[2024-07-05] MEDS: ROCEPHIN 1000 MG IV (18:09)
--- NOTE | 2024-07-05 18:35 | HPS.HSE ---
Family Physician
-
Family Physician: Zachary Stauffer
Chief Complaint
-
weak, acute gait dysfunction
History of Present Illness
HPI
89M HX HTN, COPD, CKD3, Congenital solitary kidney, Lupus, IBS, DVT, PPM implant BiB family for urinary urgency and difficult to uriante.
- weak and slightly off when he walk
- slightly more confused than normal.
- He is eating and drinking
- Recently Dxed UTI and on Amoxicillin on Tu
Medical History
Past Medical History
Past Medical History: Reports Other
Additional Past Medical History:
Hypothyroidism
Epilepsy
Solitary kidney -CKD 3B
Rheumatoid arthritis
SLE
IBS
COPD
Past Surgical History: Reports Appendectomy
Social History
Tobacco: Former Smoker
Alcohol: Daily
Drug: None
Personal:
Living: With Family
Family History
Family History: Not pertinent
Allergies / Home Medications
Allergies reflects when Allergies were last updated in [facility].
Home Medications with original date entered in [facility]
Allergy/Medication List:
Allergies
Allergy/AdvReac Type Severity Reaction Status Date / Time
No Known Allergies Allergy Verified 03/24/24 13:14
Home Medications
allopurinol 100 mg tablet 100 mg PO DAILY 30 days 03/11/19
cyanocobalamin (vitamin B-12) 1,000 mcg/mL injection solution 1,000 mcg IM MONTHLY 03/11/19
Serum Eye Drop 1 drp RIGHT EYE TID 03/24/24
Steroid Cream 1 applic topical BID 03/24/24
brimonidine 0.2 %-timolol 0.5 % eye drops (Combigan) 1 drp LEFT EYE DAILY 03/24/24
celecoxib 200 mg capsule 200 mg PO BID 03/24/24
fluticasone propionate 115 mcg-salmeterol 21 mcg/actuation HFA inhaler (Advair HFA) 2 puff inhalation R BID 03/24/24
hydroxyzine HCl 25 mg tablet 25 mg PO HS 03/24/24
levetiracetam 750 mg tablet 750 mg PO Q12 03/24/24
levothyroxine 100 mcg tablet 100 mcg PO DAILY 03/24/24
polyvinyl alcohol 1.4 % eye drops (Artificial Tears (polyvinyl alcohol)) 1 drp BOTH EYES TID 03/24/24
Review of Systems
-
Constitutional: Reports See HPI
EENT: Reports No Symptoms
Respiratory: Reports No Symptoms
Cardiac: Reports No Symptoms
Abdomen/GI: Reports No Symptoms
: Reports See HPI, Dysuria, Difficulty Voiding and Urgency
Musculoskeletal: Reports No Symptoms
Skin: Reports No Symptoms
Neurological: Reports No Symptoms
Endocrine: Reports No Symptoms
Hematologic/Lymphatic: Reports No Symptoms
Psych: Reports No Symptoms
Physical Exam
Vital Signs
Vital Signs
Temp Pulse Resp BP Pulse Ox
97.5 F 87 20 137/73 96
07/05/24 15:32 07/05/24 15:32 07/05/24 15:32 07/05/24 17:00 07/05/24 18:00
Physical Exam
General: Well Developed, Well Nourished and No Apparent Distress
HEENT: NormoCephalic, Moist mucous membranes and Atraumatic
Respiratory: Clear
Cardiac: S1/S2 and Regular Rhythm; No Murmur or Rub
GI: Soft, Non Tender, Non Distended and Normal Bowel Sounds; No Organomegaly
Rectal: Deferred by Provider
Musculoskeletal: No Clubbing, No Cyanosis and No Edema
Skin: No Rash
Neuro: Nonfocal/grossly intact
Laboratory Results
-
07/05/24 15:45
07/05/24 15:45
Laboratory Results
Total Bilirubin 0.7 mg/dl (0.2-1.3) 07/05/24 15:45
AST 54 U/L (17-59) 07/05/24 15:45
ALT 45 U/L (0-50) 07/05/24 15:45
Alkaline Phosphatase 66 U/L (38-126) 07/05/24 15:45
Data Reviewed
-
Lab Data: Labs Reviewed by me
Old Records: Reviewed
Impression/Plan
-
Vital Signs
Temp Pulse Resp BP Pulse Ox
97.5 F 87 20 137/73 96
07/05/24 15:32 07/05/24 15:32 07/05/24 15:32 07/05/24 17:00 07/05/24 18:00
Laboratory Tests
05/20/24 07/05/24 07/05/24
16:03 15:45 16:02
WBC 18.8 H
BUN 41 H
Creatinine 2.1 H 1.6 H
Leukocyte Esterase Rfl 2+ A
Urine RBC >100 A
Urine Albumin (Reflex) 3+ A
Last hospitalist admission:
DATE OF ADMISSION: 03/24/2024 - DATE OF DISCHARGE: 03/29/2024
DC DXs
1. Syncopal episode with sinus bradycardia and bifascicular block.
2. Acute kidney injury.
3. Acute urinary retention.
4. Hypothermia on admission.
ASSESSMENT & PLAN
Recent OP Dx of UTI currently on Amxoacillin
Associated with weakness, acute gait dysfunction
AMS suspect acute infective encephalopathy
Hi WCC
- Pending CT AP
- agree with IV CFTZ
- IVF
- f/u BCx
- bladder scan protocol
CKD 3B current Cr 1.6 is at baseline
Known congenital solitary kidney
- avoid NSAIDs.
HX S/p PPM for symptomatic bradycardia
HX COPD without exacerbation
- stable.
Hypothyroidism
- compliant with levothyroxine 112 mcg daily at home.
HX partial seizures:
Family states he has been seizure-free for quite some time now.
- Continue Keppra.
Chronic condition - known
Rheumatoid arthritis
SLE
IBS
DVT Px: SQH
Code: DNR confirmed by son
IP TLM
[2024-07-05 19:05] LABS: Lactic Acid 1.1 mmol/L (0.7-2.0)
[2024-07-05] MEDS: ADVAIR HFA 115/21 MCG INHALER 2 PUFF INH (21:48)
[2024-07-05] MEDS: HEPARIN 5000 UNITS SC (23:28)
[2024-07-05] MEDS: ATARAX 25 MG PO (23:28)
[2024-07-05] MEDS: KEPPRA 750 MG PO (23:28)
[2024-07-05] MEDS: NSS 1000 IV (23:37)
[2024-07-06] VITALS (8 sets, daily range): BP systolic 100–131; BP diastolic 48–99; PULSE 75–77; O2SAT 97
--- NOTE | 2024-07-06 04:06 | PTCARENOTE ---
Pt received from ER AAOx3 able to make his needs known.Denies pain. Pt encouraged to call for help as needed. PLan of care continued.Call [facility] in reach.
[2024-07-06] MEDS: SYNTHROID 100 MCG PO (04:45)
[2024-07-06] MEDS: ADVAIR HFA 115/21 MCG INHALER 2 PUFF INH ×2 (07:47→19:29)
[2024-07-06 08:30] LABS: Hematocrit 37.9 % (39.0-52.0); Hemoglobin 12.8 g/dL (13.0-18.0); Mean Corp Hgb Conc. 33.8 g/dL (33.0-37.0); Mean Corpuscular Hgb 31.1 pg (27.0-31.0); Mean Platelet Volume 10.6 fL (7.4-10.4); Platelet Count 203 10^3/uL (130-400); Red Blood Cell Count 4.12 10^6/uL (4.70-6.10); White Blood Cell Count 13.4 10^3/uL (4.8-10.8)
[2024-07-06] MEDS: COMBIGAN EYE DROPS 1 DROP LEFT EYE (08:39)
[2024-07-06] MEDS: KEPPRA 750 MG PO ×2 (08:39→20:56)
[2024-07-06] MEDS: HEPARIN 5000 UNITS SC ×2 (08:39→20:54)
[2024-07-06] MEDS: ZYLOPRIM 300 MG PO (08:40)
[2024-07-06 09:00] LABS: Blood Urea Nitrogen 33 mg/dl (9-20); Calcium 9.2 mg/dl (8.4-10.2); Carbon Dioxide 23 mmol/L (22-30); Chloride 106 mmol/L (98-107); Estimated Creatinine Clearance 45 ml/min; Glucose 87 mg/dl (70-99); Potassium 4.3 mmol/L (3.5-5.1); Sodium 142 mmol/L (135-145); eGFR 52.84
--- NOTE | 2024-07-06 09:04 | PTCARENOTE ---
pt aaox3. states no pain. asking what is going on and how long he will be here. reviewed plan of care ivf running as ordered.
--- NOTE | 2024-07-06 09:28 | W.PN.HOSP.TC ---
Today's Communication/Plan
-
continue antibiotics, repeat UA, urine culture pending, PT/OT
Assessment / Plan
Assessment / Plan
89yo M with PMH of solitary kidney, CKD, SLE, RA who presents from home to ED 07/05 for difficulty urinating. He had a recent UTI for which he saw Dr. Kelly and completed amoxicillin on Monday. He reports to me 4 days of having a hard time
urinating.
#Recent UTI resolved vs current UTI
#?urinary retention- voiding spontaneously
#leukocytosis
- UA notable for hematuria, unable to assess WBC. Will repeat UA
- Urine and blood cultures pending
- Abd/pelvis CT consistent with cystitis
- WBC 18.8 on admission --> 13.4 today
- Remains afebrile
- Monitor UOP, bladder scan
- Continue ceftriaxone pending culture results
#Solitary kidney
#CKD
- Cr 1.6 on admission --> 1.3 today
#Symptomatic bradycardia s/p pacemaker- telemetry
#History of seizure disorder- reports last seizure was few years ago, continue home kepra
#Ambulatory dysfunction- uses cane at home, fall precautions, PT/OT evaluation
#Hypothyroidism- continue home synthroid
#SLE- patient denies, will review outpatient records
#COPD- continue home inhalers
Code status: DNR, confirmed with patient
VTE ppx: heparin sc q12
Diet: Regular
Dispo planning: pending PT/OT eval
Anticipated Discharge: 24 - 48 hours
Subjective/Interval History
-
Date of Service: July 06, 2024
No acute events overnight. No complaints this morning. Voiding spontaneously, no dysuria, hematuria. Denies headache, lightheadedness, dizziness, chest pain, shortness of breath, nausea, vomiting, diarrhea, constipation. Tolerating PO diet, enjoying
breakfast at time of evaluation. Ambulating as tolerated, uses a cane at home and a walker while here.
Objective Data
-
Labs:
Laboratory Results
07/06/24
07:54
WBC 13.4 H
Hgb 12.8 L
Hct 37.9 L
Plt Count 203
Sodium 142
Potassium 4.3
Chloride 106
Carbon Dioxide 23
BUN 33 H
Creatinine 1.3
Glucose 87
Calcium 9.2
Vital Signs:
Vital Signs
Temp Pulse Resp BP Pulse Ox
97.6 F 78 16 121/69 94
07/06/24 07:55 07/06/24 07:55 07/06/24 07:55 07/06/24 07:55 07/06/24 07:55
I&O
07/05/24 07/06/24 07/07/24
06:59 06:59 06:59
Intake Total 120 / 120
Output Total 1300 / 1300
Balance -1180 / -1180
Review of Systems
-
History Source: Patient
All other systems: Reviewed and negative
Physical Exam
-
General: Well Developed, Well Nourished, No Apparent Distress, Comfortable, Conversant and Other (sitting at edge of bed, enjoying breakfast)
HEENT: Normocephalic and Atraumatic
Respiratory: Clear to Auscultation and Non Labored Respirations
Cardiac: Regular Rhythm, S1/S2 and Other (pacemaker in situ)
GI: Soft, Nontender, Nondistended and Normal Bowel Sounds
Genito-urinary: No Costovertebral Tender
Musculoskeletal: No Cyanosis and No Edema
Skin: Warm and Dry
Neuro: Awake, Alert, Oriented, AO x 3 and Nonfocal/Grossly Intact
Psych: Calm and Intact Judgement/Insight
Data Reviewed
-
CT Scan: Image personally visualized and interpreted, Report Reviewed by me and Discussed with Physician
Labs: Labs Reviewed by me and Discussed with Physician
[2024-07-06] MEDS: NSS 1000 IV ×2 (11:31→20:58)
[2024-07-06 14:30] LABS: Urine Albumin Trace (Neg - Trace); Urine Bilirubin Negative (Negative); Urine Character Slightly Cloudy (Clear); Urine Color Yellow; Urine Glucose Negative (Negative); Urine Ketone Negative (Negative); Urine Leukocyte 2+ (Negative); Urine Nitrite Negative (Negative); Urine Occult Blood 1+ (Negative); Urine Urobilinogen Negative (Neg - 1+)
--- NOTE | 2024-07-06 14:56 | W.PN.UPDATE ---
Update Note
Progress Note Update
I saw and evaluated the patient. I reviewed the resident�s note and agree with findings and plan as documented in the resident�s note.
Patient resting comfortably in bed. Mentation clear unable to discuss ongoing medical care.
Afebrile in night
1. Acute toxic metabolic encephalopathy - Improved
Rule out UTI
-Reported increased minimal confusion by family member with some weakness
-Patient has been recently treated for UTI by Dr. Kelly. Finish course of antibiotic/amoxicillin on 07/02 per ER doc.
-UA showing hematuria/unable to quantify pyuria, nitrate negative
-Repeat UA has been ordered and result pending today
-CT abdomen pelvis showing cystitis although patient denying any dysuria/lower abdominal discomfort
-Urine culture only growing 10K CFU gram-negative organism, further identification pending
-Avoid any narcotic/sedating medication
-Empirically maintained on Rocephin for now
2. Generalized weakness
-PT/OT evaluation ordered
3. Bladder diverticuli
Bladder stone
Congenitally absent right kidney
-CT abdomen pelvis done in ER showing possible bladder diverticulum with stone in the bladder diverticula
-Patient will need to follow-up with urology postdischarge
4. Rule out urinary retention
-Patient reported to having some difficulty voiding before coming to ER, no issues current
-Bladder scan/straight cath protocol ordered
-Denies of BPH, start patient on flomax
History of rheumatoid arthritis
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
Hypothyroidism
History of seizure disorder
History of pulmonary nodule
Chronic obstructive pulmonary disease
CKD IIIA
DNR
Total time spent : 52 mins
[2024-07-06 15:22] LABS: Urine Bacteria Many (Negative); Urine White Cell 21-25 /HPF (0-5)
[2024-07-06] MEDS: FLOMAX 0.4 MG PO (15:31)
[2024-07-06] MEDS: STERILE WATER FOR INJECTION 10 ML IV (17:15)
[2024-07-06] MEDS: ROCEPHIN 1000 MG IV (17:16)
[2024-07-06] MEDS: ATARAX 25 MG PO (20:56)
[2024-07-07 03:28] VITALS: BP 107/56
[2024-07-07] MEDS: SYNTHROID 100 MCG PO (06:06)
[2024-07-07] MEDS: ADVAIR HFA 115/21 MCG INHALER 2 PUFF INH (07:37)
[2024-07-07 07:55] VITALS: BP 119/60
[2024-07-07 07:59] LABS: Hematocrit 39.8 % (39.0-52.0); Hemoglobin 13.6 g/dL (13.0-18.0); Mean Corp Hgb Conc. 34.2 g/dL (33.0-37.0); Mean Corpuscular Hgb 31.4 pg (27.0-31.0); Mean Corpuscular Volume 91.9 fL (80.0-94.0); Mean Platelet Volume 10.5 fL (7.4-10.4); Platelet Count 218 10^3/uL (130-400); Red Blood Cell Count 4.33 10^6/uL (4.70-6.10); Red Cell Dist. Width 15.3 % (11.5-14.5); White Blood Cell Count 9.9 10^3/uL (4.8-10.8)
[2024-07-07 08:15] LABS: Blood Urea Nitrogen 31 mg/dl (9-20); Calcium 9.3 mg/dl (8.4-10.2); Carbon Dioxide 24 mmol/L (22-30); Chloride 108 mmol/L (98-107); Estimated Creatinine Clearance 48 ml/min; Glucose 92 mg/dl (70-99); Potassium 4.3 mmol/L (3.5-5.1); Sodium 145 mmol/L (135-145); eGFR 58.17
[2024-07-07] MEDS: FLOMAX 0.4 MG PO (08:19)
[2024-07-07] MEDS: ZYLOPRIM 300 MG PO (08:19)
[2024-07-07] MEDS: KEPPRA 750 MG PO (08:19)
[2024-07-07] MEDS: HEPARIN 5000 UNITS SC (08:19)
[2024-07-07] MEDS: COMBIGAN EYE DROPS 1 DROP LEFT EYE (08:20)
--- NOTE | 2024-07-07 09:06 | W.PN.HOSP.TC ---
Addendum entered and electronically signed by Elvin Guidry MD 07/07/24 13:22:
I saw and evaluated the patient. I reviewed the resident�s note and agree with findings and plan as documented in the resident�s note.
1. Acute toxic metabolic encephalopathy - Improved
Klebsiella UTI
-Reported increased minimal confusion by family member with some weakness
-Patient has been recently treated for UTI by Dr. Kelly. Finish course of antibiotic/amoxicillin on 07/02 per ER doc.
-UA showing hematuria/unable to quantify pyuria, nitrate negative
-Repeat UA has been ordered and result pending today
-CT abdomen pelvis showing cystitis although patient denying any dysuria/lower abdominal discomfort
-Urine culture only growing 10K CFU Klebsiella, susceptibilities reviewed
-Finish 3 days of Rocephin course with last dose of antibiotic today.
2. Generalized weakness
-PT/OT cleared and patient appropriate for home health level care
3. Bladder diverticuli
Bladder stone
Congenitally absent right kidney
-CT abdomen pelvis done in ER showing possible bladder diverticulum with stone in the bladder diverticula
-Patient will need to follow-up with urology postdischarge
4. Urinary retention - episodic
-Patient reported to having some difficulty voiding before coming to ER, no issues current
-Bladder scan/straight cath protocol ordered
-Denies of BPH, start patient on flomax
History of rheumatoid arthritis
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
Hypothyroidism
History of seizure disorder
History of pulmonary nodule
Chronic obstructive pulmonary disease
CKD IIIA
DNR
Patient clear to be discharged home with home health care.
Original Note:
Today's Communication/Plan
-
discharge home today after IV antibiotics
Assessment / Plan
Assessment / Plan
89yo M with PMH of solitary kidney, CKD, SLE, RA who presents from home to ED 07/05 for difficulty urinating. He had a recent UTI for which he saw Dr. Kelly and completed amoxicillin on Monday. He reports to me 4 days of having a hard time
urinating.
#UTI cystitis
#leukocytosis- resolved
- UA on admission notable for hematuria, unable to assess WBC
- Repeat UA notable for pyuria
- Urine culture positive for klebsiella oxytoca 10,000 CFU. CFU lower than anticipated for active infection, may be due to antibiotics taken prior to admission.
- Blood cultures no growth at 24 hours- final report pending
- Abd/pelvis CT on admission consistent with cystitis
- WBC 18.8 on admission --> 9.9 today
- Remains afebrile
- Continue ceftriaxone for today
- Stable for discharge home, will wait until he receives today's dose of IV antibiotics
#?Urinary retention
- voiding spontaneously throughout hospitalization
- Has not required catheterization
- Continue tamsulosin daily
- Follow up with urologist outpatient
#Solitary kidney
#CKD
- Cr 1.6 on admission --> 1.2 today
#Symptomatic bradycardia s/p pacemaker- telemetry
#History of seizure disorder- reports last seizure was few years ago, continue home kepra
#Ambulatory dysfunction- uses cane at home, fall precautions, PT/OT evaluation
#Hypothyroidism- continue home synthroid
#SLE- patient denies
#History of gout- continue home allopurinol
#COPD- continue home inhalers
Code status: DNR
VTE ppx: heparin sc q12
Diet: Regular
Dispo planning: discharge home today
Anticipated Discharge: Today
Subjective/Interval History
-
Date of Service: July 07, 2024
No acute events overnight. Feels well, and would like to go home. He denies lightheadedness, dizziness, chest pain, shortness of breath, nausea, vomiting, diarrhea, constipation. He is tolerating PO diet. Ambulating with walker.
Objective Data
-
Labs:
Laboratory Results
07/07/24
07:34
WBC 9.9
Hgb 13.6
Hct 39.8
Plt Count 218
Sodium 145
Potassium 4.3
Chloride 108 H
Carbon Dioxide 24
BUN 31 H
Creatinine 1.2
Glucose 92
Calcium 9.3
Vital Signs:
Vital Signs
Temp Pulse Resp BP Pulse Ox
97.5 F 75 18 119/60 95
07/07/24 07:55 07/07/24 07:55 07/07/24 07:55 07/07/24 07:55 07/07/24 07:55
I&O
07/06/24 07/07/24 07/08/24
06:59 06:59 06:59
Intake Total 120 / 120 2160 / 2160
Output Total 1300 / 1300 2200 / 2200
Balance -1180 / -1180 -40 / -40
Review of Systems
-
History Source: Patient
All other systems: Reviewed and negative
Physical Exam
-
General: Well Developed, Well Nourished, No Apparent Distress, Comfortable and Conversant
HEENT: Normocephalic and Atraumatic
Respiratory: Clear to Auscultation and Non Labored Respirations
Cardiac: Regular Rhythm, S1/S2 and Other (pacemaker in situ)
GI: Soft, Nontender, Nondistended and Normal Bowel Sounds
Genito-urinary: No Costovertebral Tender
Musculoskeletal: No Cyanosis and No Edema
Skin: Warm and Dry
Neuro: Awake, Alert, Oriented and Nonfocal/Grossly Intact
Psych: Calm and Intact Judgement/Insight
Data Reviewed
-
CT Scan: Image personally visualized and interpreted, Report Reviewed by me and Discussed with Physician
Labs: Labs Reviewed by me and Discussed with Physician
--- NOTE | 2024-07-07 10:58 | CM ---
CM met with pt and his son/Forest
Pt resides with other son/Nelson, his SUSY and adult grandchildren in a 2SH with 1STE
Pt has a 1st floor setup
Pt notes he requires supervision for ADLs due to fall risks- he utilizes a SPC or WW
His DIL is home during the day and assists as needed
Pt is active and attends [facility] gym multiples times a week and does exercises at home each morning
PCP- Zachary Stauffer
Rx- ALBERTINA Gary
PT/OT recs VN
Pt declined noting his plans to attend the gym and continue with home exercises
Family will be available to assist as needed
Aware to contact CM should he wish for VN to set up prior to dc
Discharge Disposition- home, no needs (declined VN)- family transport
[2024-07-07] MEDS: STERILE WATER FOR INJECTION 10 ML IV (14:25)
[2024-07-07] MEDS: ROCEPHIN 1000 MG IV (14:25)
[2024-07-07 16:22] VITALS: BP 141/80
--- NOTE | 2024-07-07 16:45 | W.DCSUMMARY ---
Discharge Summary
Discharge Data
Date of Admission: 07/05/24
Date of Discharge: 07/07/24
-
Pending Results: Yes
Additional Pending Results:
Blood culture 07/05/24: no growth in 24 hours- final report to follow
Hospital Course
Discharging Physician : Dr. Hilario, Dr. Rachel Guidry
Disposition : Home
Primary care physician : Zachary Stauffer
Principal Discharge diagnosis : Klebsiella UTI, acute toxic metabolic encephalopathy, urinary retention episodic
Chronic Discharge diagnosis : Congenitally absent R kidney, bladder diverticuli, bladder stone, chronic kidney disease, symptomatic bradycardia s/p pacemaker, h/o seizure disorder, ambulatory dysfunction, hypothyroidism, COPD, h/o gout, h/o RA
Hospital Course : Presented to ED 07/05 for urinary retention, which resolved spontaneously on admission. His UA consistent with UTI and urine culture eventually showed Klebsiella. Abd/pelvis CT consistent with cystitis, and notable for chronic
findings below. He was treated with antibiotics and started on tamsulosin. On day of discharge he was stable, and he was discharged home with home health care.
Important imaging findings :
Abd/pelvis CT 07/05/24
IMPRESSION:
1. SEVERE ACUTE CYSTITIS with moderate urinary bladder distention, wall thickening, and perivesical inflammation.
2. Large distended fluid-filled tubular-shaped structure extending superiorly from the right side of the urinary bladder containing multiple nonobstructing calculi which appears unchanged and may be a residual right megaureter.
3. 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
4. Mild to moderate distention of the left ureter without evidence for obstructing left ureteral calculus.
5. Severe colonic diverticulosis.
6. Severe calcific atherosclerotic plaque in the abdominal aorta and iliac arteries.
7. Small hiatal hernia.
8. Severe multilevel lumbar discogenic degenerative disease.
9. Moderate chronic bilateral lower lobe bronchiectasis.
Procedure findings : N/A
Discharge Plan
-
Patient Disposition: Home with Home Care
Discharge Diagnosis/Procedures: Urinary tract infection, cystitis, concern for urinary retention, bladder diverticula, weakness
Condition: Good
Diet: As tolerated and Low Fat
Activity: With assistance, As tolerated and With Walker
Additional Activity: with walker or cane; assistance as needed
Driving Restrictions: No driving
Bathing Restrictions: OK to Shower
Other Services: PT and OT
Instructions: Preventing falls in adults, Urinary retention - Discharge instructions
Referrals:
Alexander Kelly MD [Active] - in one month (Call your urologist Dr. Kelly to schedule follow up appointment)
Zachary Stauffer MD [Family Provider] - in one week (Call you primary care provider to schedule appointment within 1 week of hospital discharge.)
Additional Discharge Medication Instructions: New medications:
- Tamsulosin (also known as flomax): Take 1 capsule once per day.
Prescriptions:
New
tamsulosin 0.4 mg Capsule
0.4 mg PO DAILY Qty: 30 0RF
Continued
hydroxyzine HCl 25 mg tablet
25 mg PO HS
levetiracetam 750 mg tablet
750 mg PO Q12H
fluticasone propion-salmeterol [Advair HFA] 115-21 mcg/actuation HFA aerosol inhaler
2 puff INHALATION R BID
brimonidine-timolol [Combigan] 0.2-0.5 % drops
1 drp LEFT EYE DAILY
polyvinyl alcohol [Artificial Tears (polyvin alc)] 1.4 % Drops
1 drp BOTH EYES TIDPRN PRN (Reason: dry eyes)
acetaminophen 325 mg Tablet
650 mg PO Q6HPRN PRN (Reason: mild pain/ fever>100.5F) Qty: 30 0RF
levothyroxine 100 mcg Tablet
100 mcg PO DAILY
allopurinol 300 mg Tablet
300 mg PO DAILY
cyanocobalamin (vitamin B-12) 1,000 MCG/ML solution
1,000 mcg IM MONTHLY 0RF
Discharge Orders:
Discharge Patient (As Directed); Ordered 07/07/24
Ordered By: Carol Hilario
Discharge Date and Time
Discharge Date/Time: 07/07/24 16:35
Print Language: MALAY
== END 2024-07-07 16:35 | disposition home or self-care (01) | DRG 690 ==
LOC: 4 EAST ACU 19:36
PROVIDERS: Emergency Medicine; Nurse Practitioner; Student in an Organized Health Care Education/Training Program; ADMITTING PHYSICIAN Internal Medicine; ATTENDING PHYSICIAN Hospitalist; EMERGENCY PHYSICIAN Emergency Medicine; FAMILY PHYSICIAN Family Medicine
DX: N30.00 Acute cystitis without hematuria (principal); Q60.0 Renal agenesis, unilateral; M32.9 Systemic lupus erythematosus, unspecified; E03.9 Hypothyroidism, unspecified; G40.909 Epilepsy, unspecified, not intractable, without status epilepticus; I12.9 Hypertensive chronic kidney disease with stage 1 through stage 4 chronic kidney disease, or unspecified chronic kidney disease; N18.32 Chronic kidney disease, stage 3b; M06.9 Rheumatoid arthritis, unspecified; J47.9 Bronchiectasis, uncomplicated; Z66 Do not resuscitate; J44.9 Chronic obstructive pulmonary disease, unspecified; I70.0 Atherosclerosis of aorta; I70.8 Atherosclerosis of other arteries; N21.0 Calculus in bladder; N28.89 Other specified disorders of kidney and ureter; B96.1 Klebsiella pneumoniae [K. pneumoniae] as the cause of diseases classified elsewhere; K58.9 Irritable bowel syndrome, unspecified; K57.30 Diverticulosis of large intestine without perforation or abscess without bleeding; N32.89 Other specified disorders of bladder; K21.9 Gastro-esophageal reflux disease without esophagitis; K44.9 Diaphragmatic hernia without obstruction or gangrene; M51.36 Other intervertebral disc degeneration, lumbar region; R26.9 Unspecified abnormalities of gait and mobility; Z95.0 Presence of cardiac pacemaker; Z79.51 Long term (current) use of inhaled steroids; Z79.890 Hormone replacement therapy; Z79.899 Other long term (current) drug therapy; Z87.891 Personal history of nicotine dependence; Z90.89 Acquired absence of other organs
CPT/HCPCS: 51798; 74176; 80048; 80053; 81003; 81015; 83605; 85025; 85027; 87040; 87077; 87086; 87186; 94640; 96374; 97162; 97166; 99285

== ENCOUNTER → 2024-07-22 14:58 | Outpatient (REF) | payer MEDICARE, BC, SELFPAY ==
[2024-07-22 16:02] LABS: Urine Albumin Trace (Neg - Trace); Urine Bilirubin Negative (Negative); Urine Character Clear (Clear); Urine Color Yellow; Urine Glucose Negative (Negative); Urine Ketone Negative (Negative); Urine Leukocyte 2+ (Negative); Urine Nitrite Negative (Negative); Urine Occult Blood Trace (Negative); Urine Specific Gravity 1.015 (<1.030); Urine Urobilinogen Negative (Neg - 1+)
[2024-07-22 16:18] LABS: Urine Bacteria Many (Negative); Urine White Cell 70-80 /HPF (0-5)
== END ==
LOC: REG 14:58
PROVIDERS: ATTENDING PHYSICIAN Specialist; FAMILY PHYSICIAN Family Medicine
DX: N39.0 Urinary tract infection, site not specified (principal)
CPT/HCPCS: 81003; 81015; 87086

== ENCOUNTER → 2024-08-06 11:11 | Outpatient (REF) | payer MEDICARE, BC, SELFPAY ==
[2024-08-06 12:07] LABS: % Basophils 1.2 % (0-2); % Eosinophils 5.7 % (0-6); % Immature Granulocytes 0.3 % (0-0.5); % Lymphocytes 33.3 % (20.5-51.1); % Monocytes 8.2 % (1.7-9.3); % Neutrophils 51.3 % (42.2-75.2); Absolute Basophils 0.2 10^3/uL (0-0.2); Absolute Eosinophils 0.7 10^3/uL (0-0.7); Absolute Neutrophils 6.2 10^3/uL (1.4-6.5); Hematocrit 43.5 % (39.0-52.0); Hemoglobin 14.6 g/dL (13.0-18.0); Mean Corp Hgb Conc. 33.6 g/dL (33.0-37.0); Mean Corpuscular Hgb 31.6 pg (27.0-31.0); Mean Corpuscular Volume 94.2 fL (80.0-94.0); Mean Platelet Volume 10.7 fL (7.4-10.4); Nucleated Red Blood Cells % 0 % (-); Platelet Count 240 10^3/uL (130-400); Red Blood Cell Count 4.62 10^6/uL (4.70-6.10); Red Cell Dist. Width 15.5 % (11.5-14.5)
[2024-08-06 12:47] LABS: ALT (SGPT) 39 U/L (0-50); AST (SGOT) 36 U/L (17-59); Albumin 4.7 g/dl (3.5-5.0); Alkaline Phosphatase 58 U/L (38-126); Blood Urea Nitrogen 44 mg/dl (9-20); Calcium 10.2 mg/dl (8.4-10.2); Carbon Dioxide 29 mmol/L (22-30); Chloride 104 mmol/L (98-107); Glucose 82 mg/dl (70-99); Sodium 143 mmol/L (135-145); Total Bilirubin 0.4 mg/dl (0.2-1.3); Total Protein 7.6 g/dl (6.3-8.2); Uric Acid 3.9 mg/dl (3.5-8.5)
== END ==
LOC: REG 11:11
PROVIDERS: ATTENDING PHYSICIAN Physician Assistant; FAMILY PHYSICIAN Family Medicine
DX: M06.9 Rheumatoid arthritis, unspecified (principal); M10.9 Gout, unspecified; N28.9 Disorder of kidney and ureter, unspecified
CPT/HCPCS: 36415; 80053; 84550; 85025

== ENCOUNTER → 2024-08-20 10:47 | Outpatient (REF) | payer MEDICARE, BC, SELFPAY | LOC: RAD 10:47 | PROVIDERS: ATTENDING PHYSICIAN Family Medicine | DX: R05.2 Subacute cough (principal) | CPT/HCPCS: 71046 ==

== ENCOUNTER → 2024-09-16 15:15 | Outpatient (REF) | payer MEDICARE, BC, SELFPAY | LOC: HWRAD 15:15 | PROVIDERS: ATTENDING PHYSICIAN Internal Medicine Critical Care Medicine; FAMILY PHYSICIAN Family Medicine | DX: J47.9 Bronchiectasis, uncomplicated (principal); R05.3 Chronic cough | CPT/HCPCS: 71250 ==

== ENCOUNTER → 2024-10-22 08:43 | Outpatient (REF) | payer MEDICARE, BC, SELFPAY ==
[2024-10-22 09:47] LABS: Hematocrit 44.3 % (39.0-52.0); Hemoglobin 14.8 g/dL (13.0-18.0)
[2024-10-22 10:19] LABS: Albumin 4.7 g/dl (3.5-5.0); Blood Urea Nitrogen 40 mg/dl (9-20); Calcium 9.6 mg/dl (8.4-10.2); Carbon Dioxide 26 mmol/L (22-30); Chloride 105 mmol/L (98-107); Glucose 95 mg/dl (70-99); Phosphorus 4.3 mg/dl (2.5-4.5); Potassium 4.7 mmol/L (3.5-5.1); Sodium 142 mmol/L (135-145); Uric Acid 4.1 mg/dl (3.5-8.5)
[2024-10-22 10:34] LABS: NT-proBNP 290 pg/ml
[2024-10-22 10:41] LABS: Free T4 0.89 ng/dl (0.78-2.19)
[2024-10-22 11:14] LABS: Vitamin B12 817 pg/ml (239-931)
[2024-10-22 14:06] LABS: Protein/creatinine Ratio 0.2; Urine Protein 25 mg/dl
[2024-10-22 14:09] LABS: Microalbumin, Random Urine 13.8 mg/dl (0.6-1.7); Microalbumin/creatinine Ratio 120.1 mg/g
[2024-10-23 19:29] LABS: Angiotensin-1-converting Enzym 39 U/L (16-85)
[2024-10-23 23:56] LABS: ANA, IgG Reflex to HEp-2 Detected (None Detected)
[2024-10-24 01:15] LABS: Myeloperoxidase Antibody 3 AU/mL (0-19); Serine Protease-3, IgG 61 AU/mL (0-19)
[2024-10-24 07:41] LABS: Arsenic, Blood 10.7 ug/L (<=12.0); Lead - Venous <2.0 ug/dL (<=4.9); Mercury, Blood <2.5 ug/L (<=10.0)
[2024-10-24 22:45] LABS: Albumin 4.51 g/dL (3.75-5.01); Alpha 1 Globulin 0.27 g/dL (0.19-0.46); Alpha 2 Globulin 0.81 g/dL (0.48-1.05); Free Kappa Light Chains,Quant 43.28 mg/L (3.30-19.40); Free Lambda Light Chains,Quant 44.74 mg/L (5.71-26.30); IgA 184 mg/dL (68-408); IgG 1241 mg/dL (768-1632); IgM 224 mg/dL (35-263); Immunofixation Electrophoresis IFE Done; Kappa/Lambda Fr Light Ratio 0.97 (0.26-1.65); Total Protein-Electrophoresis 7.6 g/dL (6.3-8.2)
== END ==
LOC: REG 08:43
PROVIDERS: ATTENDING PHYSICIAN Specialist; FAMILY PHYSICIAN Family Medicine
DX: N18.32 Chronic kidney disease, stage 3b (principal); D51.0 Vitamin B12 deficiency anemia due to intrinsic factor deficiency; E03.9 Hypothyroidism, unspecified
CPT/HCPCS: 36415; 80069; 82043; 82164; 82175; 82570; 82607; 82784; 83516; 83521; 83655; 83825; 83880; 84155; 84156; 84165; 84439; 84443; 84550; 85014; 85018; 86038; 86334

== ENCOUNTER → 2024-11-14 08:38 | Outpatient (REF) | payer MEDICARE, BC, SELFPAY ==
[2024-11-14 10:09] LABS: Blood Urea Nitrogen 41 mg/dl (9-20); Calcium 9.3 mg/dl (8.4-10.2); Carbon Dioxide 26 mmol/L (22-30); Chloride 105 mmol/L (98-107); Glucose 95 mg/dl (70-99); Potassium 5.4 mmol/L (3.5-5.1); Sodium 143 mmol/L (135-145); eGFR 35.76
== END ==
LOC: REG 08:38
PROVIDERS: ATTENDING PHYSICIAN Specialist; FAMILY PHYSICIAN Family Medicine
DX: N18.32 Chronic kidney disease, stage 3b (principal)
CPT/HCPCS: 36415; 80048

== ENCOUNTER → 2024-12-18 07:11 | Outpatient (REF) | payer MEDICARE, BC, SELFPAY ==
[2024-12-18 09:18] LABS: Blood Urea Nitrogen 40 mg/dl (9-20); Carbon Dioxide 25 mmol/L (22-30); Chloride 103 mmol/L (98-107); Glucose 97 mg/dl (70-99); Sodium 140 mmol/L (135-145); eGFR 35.76
[2024-12-18 09:31] LABS: TSH 8.74 uIU/ml (0.47-4.68)
== END ==
LOC: REG 07:11
PROVIDERS: ATTENDING PHYSICIAN Specialist; FAMILY PHYSICIAN Family Medicine
DX: E03.9 Hypothyroidism, unspecified (principal); E87.5 Hyperkalemia
CPT/HCPCS: 36415; 80048; 84443

== ENCOUNTER 2025-02-01 08:25 | Emergency (ER) | payer MEDICARE, BC, SELFPAY ==
[2025-02-01 08:29] VITALS: BP 127/75
[2025-02-01 08:51] VITALS: BMI 23.7
--- NOTE | 2025-02-01 09:21 | ED.MUSCINJ ---
HPI-Injury
General
Chief Complaint: Musculo-Skeletal Complaint
Source: patient and family (Son reports that patient is forgetful at times, with some mild dementia)
Exam Limitations: none
Time Seen by Provider: 02/01/25 09:07
Nursing documentation reviewed up to this point in time: agreed with
History of Present Illness-Injury
Is this injury a work related problem?: No
Is pt an associate of [facility]?: No
Initial Injury comments:
89-year-old male presents emergency department complaining of left shoulder pain after a fall. He cannot move his left shoulder. He does not recall hitting his head, denies headache or neck pain.
Past History
Past History
ED Past Medical History: COPD, GERD, Seizures, Hypothyroidism and Other (Hypothyroidism, solitary kidney, lupus, rheumatoid arthritis, IBS)
ED Past Surgical History: Appendectomy
Social History
Tobacco: Former smoker
Alcohol: None
Drug: None
Personal:
Living: with family
Employment: Retired
Review of Systems
Review of Systems
Allergies reviewed?: Yes
All Other Systems: Not applicable
Constitutional: Reports no symptoms
EENT: Reports no symptoms
Respiratory: Reports no symptoms
Cardiac: Reports no symptoms
ABD/GI: Reports no symptoms
: Reports no symptoms
Musculoskeletal: Reports joint pain
Skin: Reports no symptoms
Neurological: Reports no symptoms
Endocrine: Reports no symptoms
Hematologic/Lymphatic: Reports no symptoms
Psychiatric: Reports no symptoms
Phy Exam
Physical Exam
Physical Exam:
Physical Exam
General: no apparent distress, not acutely ill
Neck: supple. no meningeal signs. normal posterior pharynx
Heart: s1/s2 regular rate and rhythm, no murmur. equal radial
pulses.
HEENT: Pupils equal round reactive to light, EOMI
Lungs: no acute respiratory distress. clear bilaterally
Abdomen: normal bowel sounds. not tender. no CVAT
Neuro: alert and oriented to person and place, but not year. no focal neurological deficits cranial nerves II through XII intact
Skin: no rash, abrasion forehead, abrasion low back, abrasion left lower leg anterior
Psychiatric: well kept. interactive and cooperative
Extremities: no edema. no calf tenderness. negative homans. good distal pulses, decreased range of motion left shoulder
Injury Course
Orders/Labs/Results
Orders:
Orders
02/01/25 08:53
CR Shoulder, Trauma - Left Urgent
Comment: s/p fall
Reason For Exam: injury/pain
02/01/25 09:20
CT Head W/o Iv Contrast Urgent
Comment:
Reason For Exam: fall, hit head
02/01/25 09:49
CR Chest - 2 Views Urgent
Comment:
Reason For Exam: left midlung opacity
02/01/25 10:43
Sling Left-Treatment ONCE
MDM/Problems Addressed
Differential Diagnosis Includes:
Intracranial hemorrhage, sole dislocation
MDM/Problems Addressed:
89 year-old male with left shoulder injury, likely rotator cuff injury. Forehead contusion, fall and incidental left-sided pneumonia. Patient denies shortness of breath at this time, but has been coughing some.
Chronic conditions affecting care: COPD
*Radiology
Radiology exam reviewed: radiology read reviewed (Chest x-ray small patchy left-sided pneumonia, CT head no acute findings, left shoulder x-ray no fracture, possible rotator cuff injury)
*Pulse Oximetry
Patient hypoxic: no
*Critical Care Note
Total Time (30-74mins, 75-104mins- exclusive of procedures): Not Applicable
Data Reviewed
Further Testing Considered But Not Given:
Labs not indicated
Patient Management
Social determinants of health affecting care: Living situation and Strong social support
Escalation/DeEscalation of care consider admission/obs:
Admit not indicated
ED Attending Note
-
Portions of this chart may have been created with voice recognition software.� Occasional wrong word or��sound alike� substitutions may have occurred due to the inherent limitations of voice recognition software.
Discharge Plan
Departure
Patient Disposition: Home (Routine Discharge)
Date of Disposition: 02/01/25
Time of Disposition: 10:43
Patient with high blood pressure during this ER visit?: Yes
Condition: Good
Discharge Problem:
Injury of left rotator cuff, Pneumonia
Instructions: Rotator cuff injury, BLOOD PRESSURE, Pneumonia
Prescriptions:
New
amoxicillin-pot clavulanate 875-125 mg tablet
1 tab PO BID Qty: 14 0RF
doxycycline hyclate 100 mg capsule
100 mg PO BID Qty: 14 0RF
No Action
hydroxyzine HCl 25 mg tablet
25 mg PO HS
levetiracetam 750 mg tablet
750 mg PO Q12H
fluticasone propion-salmeterol [Advair HFA] 115-21 mcg/actuation HFA aerosol inhaler
2 puff INHALATION R BID
brimonidine-timolol [Combigan] 0.2-0.5 % drops
1 drp LEFT EYE DAILY
polyvinyl alcohol [Artificial Tears (polyvin alc)] 1.4 % Drops
1 drp BOTH EYES TIDPRN PRN (Reason: dry eyes)
acetaminophen 325 mg Tablet
650 mg PO Q6HPRN PRN (Reason: mild pain/ fever>100.5F) Qty: 30 0RF
levothyroxine 100 mcg Tablet
100 mcg PO DAILY
allopurinol 300 mg Tablet
300 mg PO DAILY
tamsulosin 0.4 mg Capsule
0.4 mg PO DAILY Qty: 30 0RF
cyanocobalamin (vitamin B-12) 1,000 MCG/ML solution
1,000 mcg IM MONTHLY 0RF
Referrals:
Yang Arvizu MD [Active] - Call in 1-3 days for appt
Jose J Boyle DO [Family Provider] - Call in 1-3 days for appt
Interventions
Interventions:
*Risk Screen - Suicide Last Done: 02/01/25 08:29
*General Assessment Last Done: 02/01/25 08:51
*Neglect/Abuse Screening Last Done: 02/01/25 08:51
*ED- Fall Risk Assessment Last Done: 02/01/25 08:51
*ED COVID-19 Vaccine History Last Done: 02/01/25 08:51
ED-Musculoskeletal Assessment Last Done: 02/01/25 08:51
Discharge Date and Time
Print Language: BAHRAINI
[2025-02-01 09:50] VITALS: BP 139/82
--- NOTE | 2025-02-01 11:08 | EDRN ---
Reviewed discharge instructions with patient and his son. Verbalized understanding. Taken to lobby in wheelchair.
[2025-02-01 11:09] VITALS: BP 133/87
== END 2025-02-01 11:05 | disposition home or self-care (01) ==
LOC: EMR 08:25
PROVIDERS: EMERGENCY PHYSICIAN Emergency Medicine; FAMILY PHYSICIAN Family Medicine
DX: S46.002A Unspecified injury of muscle(s) and tendon(s) of the rotator cuff of left shoulder, initial encounter (principal); S00.83XA Contusion of other part of head, initial encounter; J18.9 Pneumonia, unspecified organism; W19.XXXA Unspecified fall, initial encounter; J44.0 Chronic obstructive pulmonary disease with (acute) lower respiratory infection; K21.9 Gastro-esophageal reflux disease without esophagitis; E03.9 Hypothyroidism, unspecified; K58.9 Irritable bowel syndrome, unspecified; M06.9 Rheumatoid arthritis, unspecified; M32.9 Systemic lupus erythematosus, unspecified; F03.A0 Unspecified dementia, mild, without behavioral disturbance, psychotic disturbance, mood disturbance, and anxiety; Z86.73 Personal history of transient ischemic attack (TIA), and cerebral infarction without residual deficits; Z87.891 Personal history of nicotine dependence; Z90.49 Acquired absence of other specified parts of digestive tract
CPT/HCPCS: 99284; 70450; 71046; 73030

== ENCOUNTER → 2025-02-26 07:31 | Outpatient (REF) | payer MEDICARE, BC, SELFPAY ==
[2025-02-26 08:33] LABS: Blood Urea Nitrogen 39 mg/dl (9-20); Calcium 9.9 mg/dl (8.4-10.2); Carbon Dioxide 28 mmol/L (22-30); Chloride 106 mmol/L (98-107); Glucose 96 mg/dl (70-99); Potassium 4.7 mmol/L (3.5-5.1); Sodium 144 mmol/L (135-145); eGFR 35.76
[2025-02-26 08:54] LABS: Free T4 1.22 ng/dl (0.78-2.19)
[2025-02-26 09:09] LABS: TSH 8.89 uIU/ml (0.47-4.68)
== END ==
LOC: REG 07:31
PROVIDERS: ATTENDING PHYSICIAN Family Medicine; REFERRING PHYSICIAN Specialist
DX: E03.9 Hypothyroidism, unspecified (principal); N18.32 Chronic kidney disease, stage 3b
CPT/HCPCS: 36415; 80048; 84439; 84443

== ENCOUNTER → 2025-05-01 09:52 | Outpatient (REF) | payer MEDICARE, BC, SELFPAY ==
[2025-05-01 10:25] LABS: Hematocrit 43.6 % (39.0-52.0); Hemoglobin 14.6 g/dL (13.0-18.0)
[2025-05-01 10:36] LABS: Albumin 4.3 g/dl (3.5-5.0); Blood Urea Nitrogen 37 mg/dl (9-20); Calcium 9.1 mg/dl (8.4-10.2); Carbon Dioxide 23 mmol/L (22-30); Chloride 109 mmol/L (98-107); Glucose 90 mg/dl (70-99); Potassium 4.6 mmol/L (3.5-5.1); Sodium 141 mmol/L (135-145); eGFR 44.23
== END ==
LOC: OLABWPC 09:52
PROVIDERS: ATTENDING PHYSICIAN Specialist
DX: N18.32 Chronic kidney disease, stage 3b (principal)
CPT/HCPCS: 36415; 80069; 83970; 85014; 85018

== ENCOUNTER → 2025-05-09 11:15 | Outpatient (REF) | payer MEDICARE, BC, SELFPAY ==
[2025-05-09 11:37] LABS: Blood Urea Nitrogen 37 mg/dl (9-20); Calcium 9.2 mg/dl (8.4-10.2); Carbon Dioxide 21 mmol/L (22-30); Chloride 111 mmol/L (98-107); Glucose 78 mg/dl (70-99); Potassium 4.7 mmol/L (3.5-5.1); Sodium 138 mmol/L (135-145); eGFR 52.51
[2025-05-09 12:08] LABS: TSH < 0.02 uIU/ml (0.47-4.68)
== END ==
LOC: OLABWIL 11:15
PROVIDERS: ATTENDING PHYSICIAN Family Medicine
DX: E03.9 Hypothyroidism, unspecified (principal); N18.32 Chronic kidney disease, stage 3b
CPT/HCPCS: 36415; 80048; 84439; 84443

== ENCOUNTER → 2025-05-14 11:29 | Outpatient (REF) | payer MEDICARE, BC, SELFPAY ==
[2025-05-14 12:21] LABS: Blood Urea Nitrogen 33 mg/dl (9-20); Calcium 8.7 mg/dl (8.4-10.2); Carbon Dioxide 23 mmol/L (22-30); Chloride 110 mmol/L (98-107); Glucose 81 mg/dl (70-99); Potassium 4.6 mmol/L (3.5-5.1); Sodium 139 mmol/L (135-145); eGFR 52.51
== END ==
LOC: OLABWIL 11:29
PROVIDERS: ATTENDING PHYSICIAN Family Medicine
DX: E03.9 Hypothyroidism, unspecified (principal); N18.32 Chronic kidney disease, stage 3b
CPT/HCPCS: 36415; 80048; 84439

== ENCOUNTER → 2025-05-15 13:41 | Outpatient (REF) | payer MEDICARE, BC, SELFPAY | LOC: RAD 13:41 | PROVIDERS: ATTENDING PHYSICIAN Family Medicine | DX: M25.552 Pain in left hip (principal) | CPT/HCPCS: 73502 ==

== ENCOUNTER → 2025-05-19 09:07 | Outpatient (REF) | payer MEDICARE, BC, SELFPAY ==
[2025-05-19 11:43] LABS: Hematocrit 43.1 % (39.0-52.0); Hemoglobin 14.5 g/dL (13.0-18.0); Mean Corp Hgb Conc. 33.6 g/dL (33.0-37.0); Mean Corpuscular Volume 91.1 fL (80.0-94.0); Nucleated Red Blood Cells % 0 % (-); Platelet Count 234 10^3/uL (130-400); Red Cell Dist. Width 15.2 % (11.5-14.5)
[2025-05-19 11:55] LABS: ALT (SGPT) 44 U/L (0-50); AST (SGOT) 31 U/L (17-59); Albumin 4.3 g/dl (3.5-5.0); Alkaline Phosphatase 61 U/L (38-126); Blood Urea Nitrogen 37 mg/dl (9-20); Calcium 9.5 mg/dl (8.4-10.2); Carbon Dioxide 25 mmol/L (22-30); Chloride 106 mmol/L (98-107); Glucose 88 mg/dl (70-99); Potassium 4.5 mmol/L (3.5-5.1); Sodium 139 mmol/L (135-145); Total Protein 7.2 g/dl (6.3-8.2); Uric Acid 2.8 mg/dl (3.5-8.5); eGFR 52.51
== END ==
LOC: OLABWPC 09:07
PROVIDERS: ATTENDING PHYSICIAN Internal Medicine Rheumatology
DX: M10.9 Gout, unspecified (principal)
CPT/HCPCS: 36415; 80053; 84550; 85025

== ENCOUNTER → 2025-05-27 11:39 | Outpatient (REF) | payer MEDICARE, BC, SELFPAY ==
[2025-05-27 13:11] LABS: Hematocrit 44.2 % (39.0-52.0); Hemoglobin 14.4 g/dL (13.0-18.0); Mean Corp Hgb Conc. 32.6 g/dL (33.0-37.0); Mean Corpuscular Volume 93.1 fL (80.0-94.0); Nucleated Red Blood Cells % 0 % (-); Platelet Count 217 10^3/uL (130-400); Red Cell Dist. Width 15.7 % (11.5-14.5)
[2025-05-27 14:28] LABS: C-Reactive Protein 8.50 mg/L (0.0-10.00)
[2025-05-27 14:32] LABS: ALT (SGPT) 31 U/L (0-50); AST (SGOT) 30 U/L (17-59); Albumin 4.4 g/dl (3.5-5.0); Alkaline Phosphatase 53 U/L (38-126); Blood Urea Nitrogen 36 mg/dl (9-20); Calcium 9.1 mg/dl (8.4-10.2); Carbon Dioxide 24 mmol/L (22-30); Chloride 107 mmol/L (98-107); Glucose 88 mg/dl (70-99); Potassium 4.1 mmol/L (3.5-5.1); Sodium 140 mmol/L (135-145); Total Protein 7.1 g/dl (6.3-8.2); eGFR 52.51
== END ==
LOC: OLABWPC 11:39
PROVIDERS: ATTENDING PHYSICIAN Family Medicine
DX: M06.9 Rheumatoid arthritis, unspecified (principal); N18.32 Chronic kidney disease, stage 3b; I48.0 Paroxysmal atrial fibrillation
CPT/HCPCS: 36415; 80053; 85025; 86140

== ENCOUNTER → 2025-06-25 12:00 | Outpatient (REF) | payer MEDICARE, BC, SELFPAY ==
[2025-06-25 13:24] LABS: HDL Cholesterol 62 mg/dl; LDL Cholesterol, Calculated 131 mg/dl; Very Low Density Lipoprotein 19 mg/dl (0-30)
[2025-06-25 13:50] LABS: TSH < 0.02 uIU/ml (0.47-4.68)
== END ==
LOC: OLABWPC 12:00
PROVIDERS: ATTENDING PHYSICIAN Family Medicine
DX: Z00.00 Encounter for general adult medical examination without abnormal findings (principal); E03.9 Hypothyroidism, unspecified
CPT/HCPCS: 36415; 80061; 84439; 84443

== ENCOUNTER → 2025-07-17 11:24 | Outpatient (REF) | payer MEDICARE, BC, SELFPAY ==
[2025-07-17 12:18] LABS: Blood Urea Nitrogen 35 mg/dl (9-20); Calcium 9.2 mg/dl (8.4-10.2); Carbon Dioxide 23 mmol/L (22-30); Chloride 109 mmol/L (98-107); Glucose 88 mg/dl (70-99); Potassium 4.4 mmol/L (3.5-5.1); Sodium 139 mmol/L (135-145); eGFR 52.51
[2025-07-17 13:02] LABS: TSH < 0.02 uIU/ml (0.47-4.68)
== END ==
LOC: OLABWPC 11:24
PROVIDERS: ATTENDING PHYSICIAN Family Medicine
DX: N18.32 Chronic kidney disease, stage 3b (principal); E03.9 Hypothyroidism, unspecified
CPT/HCPCS: 36415; 80048; 84439; 84443

== ENCOUNTER → 2025-08-28 10:31 | Outpatient (REF) | payer MEDICARE, BC, SELFPAY ==
[2025-08-28 13:16] LABS: TSH 0.08 uIU/ml (0.47-4.68)
[2025-08-28 13:25] LABS: Blood Urea Nitrogen 40 mg/dl (9-20); Calcium 9.3 mg/dl (8.4-10.2); Carbon Dioxide 24 mmol/L (22-30); Chloride 105 mmol/L (98-107); Glucose 83 mg/dl (70-99); Potassium 4.7 mmol/L (3.5-5.1); Sodium 139 mmol/L (135-145); eGFR 48.04
== END ==
LOC: OLABWPC 10:31
PROVIDERS: ATTENDING PHYSICIAN Family Medicine
DX: N18.32 Chronic kidney disease, stage 3b (principal); E03.9 Hypothyroidism, unspecified
CPT/HCPCS: 36415; 80048; 84439; 84443